=== PATIENT | female | born 2000 | race Caucasian/White ===

== ENCOUNTER 2020-01-12 07:07 | Outpatient (NON) | payer OTHER, SELFPAY ==
[2020-01-13 22:24] LABS: SARS-CoV-2 RNA PCR Negative
== END 2020-01-12 07:08 ==
PROVIDERS: PCP Family Medicine; Visit Provider Nurse Practitioner Family
DX: R68.89 Other general symptoms and signs (principal); Z20.828 Contact with and (suspected) exposure to other viral communicable diseases
CPT/HCPCS: 87635; C9803; U0003

== ENCOUNTER 2021-09-28 11:24 | Outpatient (CLI) | payer OTHER, SELFPAY ==
--- NOTE | ~2021-09-28 | XR_ITS ---
EXAMINATION: XR chest 2V 09/28/2021 12:17 INDICATION: Cough. PROCEDURE: 2 view chest COMPARISON: No prior studies for comparison. FINDINGS: The lungs are clear. The cardiomediastinal silhouette is within normal limits. There are no pleural effusions. There is no pneumothorax suspected. The lungs are mildly hyperinflated, which can be associated with reactive airway disease. IMPRESSION: 1: NO ACUTE CARDIOPULMONARY DISEASE. Reviewed, dictated and finalized at location A.
== END 2021-09-28 11:25 ==
PROVIDERS: PCP Family Medicine; Visit Provider Family Medicine
DX: R05.9 Cough, unspecified (principal)
CPT/HCPCS: 71046

== ENCOUNTER 2021-10-30 13:16 | Outpatient (CLI) | payer OTHER, SELFPAY ==
--- NOTE | 2021-11-02 13:24 | WPDPFTINT ---
PFT Procedure Performed PFT Procedure Performed Spirometry with Pre/Post Bronchodilator Plethysmography (Lung Vol) Diffusing Cap (DLCO) Flow Vol Loop PFT Interpretation Lung volumes were measured with the body plethysmography method. Lung volumes are unremarkable. Spirometry showed normal expiratory flow rates and a normal FEV1 to FVC ratio of 96%. Following administration of a bronchodilator there was no significant change in the expiratory flow rates. Lung diffusion capacity is within the normal range. The flow volume loop is unremarkable. Impression: Spirometry, lung volumes, and lung diffusion capacity all within normal range.
== END 2021-10-30 13:17 | disposition home or self-care (01) ==
PROVIDERS: PCP Family Medicine; Visit Provider Family Medicine
DX: R05.9 Cough, unspecified (principal)
CPT/HCPCS: 94060; 94726; 94729

== ENCOUNTER 2022-09-06 08:10 | Outpatient (CLI) | payer OTHER, SELFPAY ==
--- NOTE | ~2022-09-06 | US_ITS ---
EXAMINATION: US thyroid DATE: 09/06/2022 08:45 INDICATION: Nontoxic single thyroid nodule. TECHNIQUE: Multiple ultrasound images of the thyroid were obtained. COMPARISON: None. FINDINGS: The right thyroid lobe measures 3.7 x 1.5 x 2.3 cm. The left thyroid lobe measures 3.1 x 1.5 x 1.3 c m. In the right thyroid lobe, there is a 1.7 cm solid, isoechoic, wider than tall nodule with ill-de fined margin without echogenic foci (TI-RADS TR3). IMPRESSION: 1. Right thyroid nodule. Thyroid ultrasound is recommended in one year. Reviewed, dictated and finalized at location A.
== END 2022-09-06 08:11 | disposition home or self-care (01) ==
PROVIDERS: PCP Family Medicine; Visit Provider Physician Assistant
DX: E04.1 Nontoxic single thyroid nodule (principal)
CPT/HCPCS: 76536

== ENCOUNTER 2022-09-27 04:31 | Emergency (ER) | payer OTHER, SELFPAY ==
[2022-09-27 04:36] VITALS: BP 116/82; PULSE 94; RESP 15; O2SAT 100
[2022-09-27] MEDS: LACTATED RINGERS 1,000 ML 999 ML IV CONT (05:16)
[2022-09-27] MEDS: ONDANSETRON INJ 4 MG/2 ML VIAL IV PUSH (05:17)
[2022-09-27 05:25] LABS: Basophils Percent Auto 0.5 % (0.2-1.2); Eosinophils Percent Auto 0.5 % (0-4.4); Hematocrit 40.3 % (37.0-47.0); Hemoglobin 14.2 g/dL (12.0-15.0); Immature Granulocyte Absolute 0.04 K/mm3 (0.00-0.031); Immature Granulocyte Percent A 0.5 % (0-0.5); Lymphocytes Absolute Auto 2.26 K/mm3 (0.9-3.2); Lymphocytes Percent Auto 29.9 % (18.3-44.2); Mean Corpuscular HGB Conc 35.2 g/dl (32-36); Mean Corpuscular Hemoglobin 30.7 pg (26-34); Mean Platelet Volume 10.5 fl (7.4-10.4); Monocytes Absolute Auto 0.3 K/mm3 (0.1-0.6); Monocytes Percent Auto 3.7 % (2.6-8.5); Neutrophils Absolute Auto 4.9 K/mm3 (1.3-6.7); Neutrophils Percent Auto 64.9 % (45.5-73.1); Platelet Count Result 218 k/mm3 (150-375); Red Blood Count 4.63 M/mm3 (4.2-5.4); White Blood Count 7.6 K/mm3 (4.5-10.0)
[2022-09-27 05:34] LABS: Alanine Aminotransferase 41 U/L (6-35); Alkaline Phosphatase 54 U/L (38-126); Anion Gap 13 mmol/L (8-16); Aspartate Amino Transferase 69 U/L (14-36); Bilirubin,Total 0.3 mg/dL (0.2-1.3); Blood Urea Nitrogen 10 mg/dL (7-17); Calcium 9.6 mg/dL (8.4-10.2); Carbon Dioxide 23 mmol/L (22-30); Chloride 101 mmol/L (98-107); Estimated CRCL calculation 110 ml/min; Estimated Glomerular Filt Rate > 60; Glucose 100 mg/dL (65-110); Lipase 101 U/L (23-300); Potassium 3.6 mmol/L (3.4-5.0); Sodium 137 mmol/L (137-145)
--- NOTE | 2022-09-27 05:47 | ED.NAVMDI ---
HPI - Nausea/Vomiting/Diarrhea General Chief complaint: Nausea/Vomiting/Diarrhea Stated complaint: nausea/vomiting Time Seen by Provider: 09/27/22 05:09 Source: patient and RN notes reviewed Mode of arrival: ambulatory Limitations: no limitations History of Present Illness HPI Narrative: This is 21 year old female who presents for evaluation of diarrhea and vomiting. She states approximately 4 hours ago she developed multiple episode of diarrhea and then she develop vomiting. She reports quivering sensation in her upper abdomen. She states she went to restaurant last night to eat but she is the only that is sick. She denies fever. she reports throat discomfort from her vomiting. Related Data Home Medications Medication Instructions Recorded Confirmed spironolactone 50 mg tablet 50 mg PO BID 04/13/19 08/13/22 Allergies Allergy/AdvReac Type Severity Reaction Status Date / Time fluconazole Allergy Other Verified 09/27/22 04:40 Review of Systems Constitutional: Constitutional: Denies weakness Cardiovascular: Cardiovascular: Denies syncope, Denies rapid heart rate, Denies irregular heart rhythm, Denies leg edema and Denies dyspnea Respiratory: Respiratory: Denies chest congestion, Denies hemoptysis, Denies excessive phlegm production and Denies dyspnea Gastrointestinal: Gastrointestinal: Reports abdominal pain, Denies hematochezia, Reports diarrhea, Reports nausea and Reports vomiting Genitourinary: Genitourinary: Denies hematuria and Denies dysuria Musculoskeletal: Musculoskeletal: Denies joint swelling, Denies loss of height and Denies muscle weakness Neurologic: Denies syncope, Denies focal weakness and Denies weakness PMFSH Past Medical History Medical History (Updated 09/28/22 @ 00:05 by Claudia Simeon) Patient denies medical problems Surgical History Surgical History (Updated 09/27/22 @ 05:48 by Lorraine Gutierres MD) No pertinent past surgical history Family History Family History Father Hypertension Family history of elevated blood lipids Family history of diabetes mellitus in first degree relative Family history of coronary artery disease Social History Social History Social History: Single Smoking status: Never smoker Second hand tobacco smoke exposure: No Alcohol intake: never Substance use: never Substance use type: does not use Living arrangements: alone Occupation/Education: student Additional occupation/education comments: 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 Gender identity (if verbalized by the patient): Female Exam Const: General: no acute distress and alert Nutritional Appearance: well nourished Orientation/consciousness: patient oriented x3 HENMT: Head: normal to inspection Ears: external ears normal Mouth: Yes lip normal and Yes moist mucous membranes Teeth and gingiva: dentition normal Throat: uvula midline Other: mild irritation at uvula from vomiting Eyes: Pupils: Equal, round and reactive pupils present EOM: EOMs intact bilaterally Neck: Neck: normal visual inspection Chest: Chest palpation & inspection: normal inspection of the chest Resp: Effort & Inspection: normal respiratory effort Auscultation: clear to auscultation bilaterally Cardio: Rate: regular rate Rhythm: regular rhythm Heart sounds: no murmurs GI: GI Palp: Yes Soft to palpation, Yes Tenderness to palpation present (GI) (epigastric), No Guarding due to palpation present (GI) and No Rigid due to palpation Auscultation: normal bowel sounds Skin: General skin exam: normal color Rashes: no rashes Wounds: no wounds Neuro: General: patient oriented x3, moves all extremities and CN's II-XI intact bilaterally Extrem: General: normal to inspection Psych: Mental Status: mental status grossly normal Affect: normal affect Attitude: cooperative Course Reevaluation(s)
[2022-09-27 05:53] LABS: Appearance Urine Cloudy (Clear); Bacteria Urine 1+ /hpf; Bilirubin Urine Negative (Negative); Blood Urine Negative (Negative); Color Urine Dark Yellow (Yellow); Glucose Urine UA Negative (Negative); Ketones Urine Trace mg/dL (Negative); Leukocyte Esterase Ur Negative LEU/UL (Negative); Nitrate Urine Negative (Negative); Non Pathogenic Casts 0-2; Protein Urine Trace mg/dL (Negative); RBC Urine 0-2 /hpf (0-2); Specific Grav Ur 1.024 (1.001-1.035); Squamous Epithelial Cell Urine Moderate /hpf (Few); WBC Urine 0-5 /hpf
[2022-09-27 05:56] LABS: Add Urine Microscopic? YES
[2022-09-27 06:57] VITALS: TEMP 36.7
[2022-09-27 07:05] VITALS: BP 118/66; PULSE 84; RESP 15; O2SAT 100
[2022-09-27 07:05] LABS: Hepatitis B Surface Antigen Negative (Negative)
[2022-09-27 07:12] LABS: HAV RESULT Negative (Negative); Hepatitis B Core IgM Result Negative (Negative)
[2022-09-27 07:23] LABS: Hepatitis C Virus Antibody Negative (Negative)
== END 2022-09-27 07:06 | disposition home or self-care (01) ==
PROVIDERS: Emergency Provider General Practice; PCP Family Medicine
DX: K52.9 Noninfective gastroenteritis and colitis, unspecified (principal)
CPT/HCPCS: 36415; 80053; 80074; 81001; 81025; 83690; 85025; 96361; 96374; 99284; J2405; J7120

== ENCOUNTER 2023-06-08 16:01 | Outpatient (CLI) | payer OTHER, SELFPAY ==
--- NOTE | ~2023-06-08 | XR_ITS ---
EXAMINATION: XR chest 2V 06/08/2023 16:16 INDICATION: Shortness of breath PROCEDURE: 2 view chest COMPARISON: No prior studies for comparison. FINDINGS: The lungs are clear. Mild hyperinflation. The cardiomediastinal silhouette is within normal limits. There are no pleural effusions. There is no pneumothorax suspected. IMPRESSION: 1: NO ACUTE CARDIOPULMONARY DISEASE. Reviewed, dictated and finalized at location B.
== END 2023-06-08 16:02 | disposition home or self-care (01) ==
LOC: ANHIMG 16:02
PROVIDERS: PCP Family Medicine; Visit Provider Physician Assistant
DX: R06.02 Shortness of breath (principal)
CPT/HCPCS: 71046

== ENCOUNTER 2023-07-28 14:50 | Outpatient (CLI) | payer OTHER, SELFPAY ==
[2023-07-28 16:08] LABS: Strep Group A RT-PCR NOT DETECTED (Negative)
[2023-07-28 16:16] LABS: Influenza A QL RT-PCR Negative (Negative); Influenza B QL RT-PCR Negative (Negative); SARS-CoV-2 RNA PCR Negative (Negative)
== END 2023-07-28 14:51 | disposition home or self-care (01) ==
LOC: ANHLAB 14:52
PROVIDERS: PCP Family Medicine; Visit Provider Family Medicine
DX: J02.9 Acute pharyngitis, unspecified (principal); R50.9 Fever, unspecified
CPT/HCPCS: 87636; 87651

== ENCOUNTER 2023-09-12 15:10 | Outpatient (CLI) | payer OTHER, SELFPAY ==
[2023-09-12 15:59] LABS: SARS-CoV-2 RNA PCR Negative (Negative)
== END 2023-09-12 15:11 | disposition home or self-care (01) ==
LOC: ANHLAB 15:11
PROVIDERS: PCP Family Medicine; Visit Provider Physician Assistant Medical
DX: R51.9 Headache, unspecified (principal); R53.83 Other fatigue; Z20.822 Contact with and (suspected) exposure to COVID-19
CPT/HCPCS: 87635

== ENCOUNTER 2023-10-10 14:10 | Outpatient (CLI) | payer OTHER, SELFPAY ==
[2023-10-10 15:00] LABS: SARS-CoV-2 RNA PCR Positive (Negative)
== END 2023-10-10 14:11 | disposition home or self-care (01) ==
LOC: ANHLAB 14:12
PROVIDERS: PCP Family Medicine; Visit Provider Physician Assistant Medical
DX: U07.1 COVID-19 (principal)
CPT/HCPCS: 87635

== ENCOUNTER 2024-01-06 15:19 | Emergency (ER) | payer OTHER, SELFPAY ==
--- NOTE | ~2024-01-06 | CT_ITS ---
EXAMINATION: CT brain wo con DATE: 01/06/2024 17:13 INDICATION: Headache and vomiting. TECHNIQUE: Computed tomography (CT) of the head was performed without intravenous contrast. The mA wa s adjusted according to patient size. Iterative reconstruction technique was employed. The dose-lengt h product was 605.33 mGy-cm. COMPARISON: None FINDINGS: There is no intracranial hemorrhage, acute infarction, or abnormal intracranial mass lesion . The ventricles are normal in size. There is mild mucosal thickening in left maxillary sinus. The or bits are normal. The mastoid air cells are normal. IMPRESSION: 1. Normal brain. Reviewed, dictated and finalized at location A. HARDENER IMPRESSION: 1. Normal brain.
[2024-01-06 15:29] VITALS: BP 121/84; PULSE 101; RESP 16; TEMP 36.7; O2SAT 100
--- NOTE | 2024-01-06 15:57 | ED_ITS ---
HPI - Headache General Chief Complaint: Headache <UBALDO Rojas Last Filed: 01/06/24 15:58> Stated Complaint: vomiting <UBALDO Rojas Last Filed: 01/06/24 15:58> Time Seen by Provider: 01/06/24 15:57 <UBALDO Rojas Last Filed: 01/06/24 15:58> Focused HPI: This is a 23 year old female that presents to the ER for a headache. Ongoing since she woke up this morning. Associated with nausea and vomiting. Took a long nap without relief. Denies fever, abdominal, dysuria or hematuria. GENERAL: Well-appearing, well-nourished, and in no acute distress. HEAD: Normocephalic, atraumatic. CHEST: Clear to auscultation. ?No respiratory distress. HEART: Regular rate and rhythm.? NEURO: ?Alert and oriented x3. Patient screened in triage and initial orders placed.? ?Additional care and disposition to be based upon?diagnostic testing and treatment. <UBALDO Rojas Last Filed: 01/06/24 15:58> Focused HPI: This is a 23 year old female that presents to the ER for a headache. Ongoing since she woke up this morning. Associated with nausea and vomiting. Took a long nap without relief. Denies fever, abdominal, dysuria or hematuria. GENERAL: Well-appearing, well-nourished, and in no acute distress. HEAD: Normocephalic, atraumatic. CHEST: Clear to auscultation. ?No respiratory distress. HEART: Regular rate and rhythm.? NEURO: ?Alert and oriented x3. Patient screened in triage and initial orders placed.? ?Additional care and disposition to be based upon?diagnostic testing and treatment. <UBALDO Miranda Last Filed: 01/06/24 20:26> Source: patient <UBALDO Miranda Last Filed: 01/06/24 20:26> Mode of arrival: ambulatory <UBALDO Miranda Last Filed: 01/06/24 20:26> Limitations: no limitations <UBALDO Miranda Last Filed: 01/06/24 20:26> History of Present Illness HPI Narrative: Agree with above HPI. Attempted taking ibuprofen but does not think she kept this down. Hx of occasional headaches and 1 previous migraine. Reports photophobia/phonophobia. <Alexia Hartley PA-C - Last Filed: 01/06/24 20:26> Related Data Home Medications: Home Medications Medication Instructions Recorded Confirmed spironolactone 50 mg tablet 50 mg PO BID 04/13/19 11/15/23 <Keiry Ornelas PA-C - Last Filed: 01/06/24 15:58> Allergies/Adverse Reactions: Allergies Allergy/AdvReac Type Severity Reaction Status Date / Time fluconazole Allergy Other Verified 11/15/23 09:09 <Keiry Ornelas PA-C - Last Filed: 01/06/24 15:58> Review of Systems Review of Systems: All systems reviewed & are unremarkable except as noted in HPI. <Alexia Hartley PA-C - Last Filed: 01/06/24 20:26> All systems reviewed & are unremarkable except as noted in HPI and below <Alexia Hartley PA-C - Last Filed: 01/06/24 20:26> PMFSH Past Medical History Medical History: Medical History Patient denies medical problems Positive antinuclear antibody <Keiry Ornelas PA-C - Last Filed: 01/06/24 15:58> Surgical History Surgical History: Surgical History No pertinent past surgical history <Keiry Ornelas PA-C - Last Filed: 01/06/24 15:58> Family History Family History: Family History Father Hypertension Family history of elevated blood lipids Family history of diabetes mellitus in first degree relative Family history of coronary artery disease <Keiry Ornelas PA-C - Last Filed: 01/06/24 15:58> Social History Social History: Social History Social History: Single Smoking status: Never smoker Second hand tobacco smoke exposure: No Alcohol intake: never Substance use: never Substance use type: does not use Living arrangements: alone Occupation/Education: student Additional occupation/education comments: 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 Gender identity (if verbalized by the patient): Female <Keiry Ornelas PA-C - Last Filed: 01/06/24 15:58> Exam Narrative: GENERAL: Well appearing, thin, non-toxic, in no acute distress. HEAD: Normocephalic, atraumatic. EYES: PERRL/EOMI, conjunctiva clear. No nystagmus NECK: No meningeal signs. RESPIRATORY: Airway patent, respirations nonlabored. Clear to auscultation bilaterally, no rales, rhonchi, wheezing. CARDIOVASCULAR: Regular rate and rhythm MUSCULOSKELETAL: Moves all extremities. No gross deformities. SKIN: Warm, dry, normal color. NEURO: A&O X3. Speech clear. Cranial nerves II-XII grossly intact. Steady gait. No ataxic movements. No focal deficits. PSYCHIATRIC: Appropriate mood and affect. Normal interaction. <Alexia Hartley PA-C - Last Filed: 01/06/24 20:26> Course Vital Signs Vital signs: Vital Signs Temperature 98.0 F 01/06/24 15:29 Pulse Rate 101 H 01/06/24 15:29 Respiratory Rate 16 01/06/24 15:29 Blood Pressure 121/84 01/06/24 15:29 Pulse Oximetry 100 01/06/24 15:29 Oxygen Delivery Room Air 01/06/24 15:29 Temperature 98.0 F 01/06/24 19:04 Pulse Rate 73 01/06/24 19:04 Respiratory Rate 16 01/06/24 19:04 Blood Pressure 107/69 01/06/24 19:04 Pulse Oximetry 100 01/06/24 19:04 Oxygen Delivery Room Air 01/06/24 15:29 <Keiry Ornelas PA-C - Last Filed: 01/06/24 15:58> Vital Signs Temperature 98.0 F 01/06/24 15:29 Pulse Rate 101 H 01/06/24 15:29 Respiratory Rate 16 01/06/24 15:29 Blood Pressure 121/84 01/06/24 15:29 Pulse Oximetry 100 01/06/24 15:29 Oxygen Delivery Room Air 01/06/24 15:29 Temperature 98.0 F 01/06/24 19:04 Pulse Rate 73 01/06/24 19:04 Respiratory Rate 16 01/06/24 19:04 Blood Pressure 107/69 01/06/24 19:04 Pulse Oximetry 100 01/06/24 19:04 Oxygen Delivery Room Air 01/06/24 15:29 <UBALDO Miranda Last Filed: 01/06/24 20:26> MDM - Headache MDM Narrative Medical decision making narrative: Vital signs are stable upon arrival. Neurovascularly intact. CT brain negative. Laboratory studies fairly unremarkable. Does show leukocytosis to 16.8. Patient denies any recent infectious symptoms. She did report vomiting today. Likely hemoconcentrated. Fluids given. Normal TSH. Urine without signs of infection. Patient given migraine cocktail. She is feeling much better on re-evaluation. Feels comfortable with discharge home at this time. Discussed further management of headaches, will prescribe Zofran. Given return precautions. Discharged in stable condition. <UBALDO Miranda Last Filed: 01/06/24 20:26> Medical Records Attestation: I reviewed the patient's medical records. <UBALDO Miranda Last Filed: 01/06/24 20:26> Lab Data Attestation: I reviewed the patient's lab results. <UBALDO Miranda Last Filed: 01/06/24 20:26> Result diagrams: 01/06/24 18:09 01/06/24 18:09 <UBALDO Rojas Last Filed: 01/06/24 15:58> Labs: Lab Results 01/06/24 01/06/24 Range/Units 18:09 19:08 WBC 16.8 H (4.5-10.0) K/mm3 RBC 5.04 (4.2-5.4) M/mm3 Hgb 15.4 H (12.0-15.0) g/dL Hct 43.8 (37.0-47.0) % MCV 86.9 (80-100) fl MCH 30.6 (26-34) pg MCHC 35.2 (32-36) g/dl RDW 12.7 (11.5-14.5) % Plt Count 285 (150-375) k/mm3 MPV 11.1 H (7.4-10.4) fl Immature Gran % (Auto) 0.5 (0-0.5) % Neut % (Auto) 89.9 H (45.5-73.1) % Lymph % (Auto) 7.7 L (18.3-44.2) % Mcdonald % (Auto) 1.7 L (2.6-8.5) % Eos % (Auto) 0.0 (0-4.4) % Baso % (Auto) 0.2 (0.2-1.2) % Lymph # (Auto) 1.29 (0.9-3.2) K/mm3 Mcdonald # (Auto) 0.3 (0.1-0.6) K/mm3 Eos # (Auto) 0.0 (0-0.3) K/mm3 Baso # (Auto) 0.0 (0.0-0.1) K/mm3 Abs Immat Gran (auto) 0.08 H (0.00-0.031) K/mm3 Absolute Neuts (auto) 15.1 H (1.3-6.7) K/mm3 Absolute Nucleated RBC 0.000 (0.0-0.012) K/mm3 Nucleated RBC % 0.0 (0.0-0.2) % Sodium 139 (137-145) mmol/L Potassium 4.2 (3.4-5.0) mmol/L Chloride 100 (98-107) mmol/L Carbon Dioxide 26 (22-30) mmol/L Anion Gap 13 H (4-12) mmol/L BUN 12 (7-17) mg/dL Creatinine 0.70 (0.7-1.0) mg/dL Estim Creat Clear Calc 100 ml/min Estimated GFR > 60 (59 - ) Glucose 105 (65-110) mg/dL Calcium 10.2 (8.4-10.2) mg/dL Magnesium 2.1 (1.6-2.3) mg/dL Total Bilirubin 0.7 (0.2-1.3) mg/dL AST 31 (14-36) U/L ALT 22 (6-35) U/L Alkaline Phosphatase 64 (38-126) U/L Total Protein 9.0 H (6.3-8.2) g/dL Albumin 5.5 H (3.5-5.1) g/dL TSH (Reflex) 3.070 (0.465-4.68) uIU/mL Urine Color Dark yellow (Yellow) Urine Appearance Cloudy H (Clear) Urine pH 6.5 (5.0-9.0) Ur Specific [place] 1.027 (1.001-1.035) Urine Protein 1+ H (Negative) mg/dL Urine Glucose (UA) Negative (Negative) mg/dL Urine Ketones 1+ H (Negative) mg/dL Ur Blood (Man) Negative (Negative) Urine Nitrate Negative (Negative) Urine Bilirubin Negative (Negative) Urine Urobilinogen 0.2 (<2.0) mg/dL Add Ur Microanalysis Reviewed Leukocyte Esterase Rfl Negative (Negative) JOSE R/UL Urine RBC 0-2 (0-2) /hpf Urine WBC 0-5 (0-3) /hpf Ur Squamous Epith Cells None seen (Few) /hpf Urine Bacteria Rare /hpf Urine Casts 3-5 Urine Mucus Present /lpf <Keiry Ornelas PA-C - Last Filed: 01/06/24 15:58> Lab Results 01/06/24 01/06/24 Range/Units 18:09 19:08 WBC 16.8 H (4.5-10.0) K/mm3 RBC 5.04 (4.2-5.4) M/mm3 Hgb 15.4 H (12.0-15.0) g/dL Hct 43.8 (37.0-47.0) % MCV 86.9 (80-100) fl MCH 30.6 (26-34) pg MCHC 35.2 (32-36) g/dl RDW 12.7 (11.5-14.5) % Plt Count 285 (150-375) k/mm3 MPV 11.1 H (7.4-10.4) fl Immature Gran % (Auto) 0.5 (0-0.5) % Neut % (Auto) 89.9 H (45.5-73.1) % Lymph % (Auto) 7.7 L (18.3-44.2) % Mcdonald % (Auto) 1.7 L (2.6-8.5) % Eos % (Auto) 0.0 (0-4.4) % Baso % (Auto) 0.2 (0.2-1.2) % Lymph # (Auto) 1.29 (0.9-3.2) K/mm3 Mcdonald # (Auto) 0.3 (0.1-0.6) K/mm3 Eos # (Auto) 0.0 (0-0.3) K/mm3 Baso # (Auto) 0.0 (0.0-0.1) K/mm3 Abs Immat Gran (auto) 0.08 H (0.00-0.031) K/mm3 Absolute Neuts (auto) 15.1 H (1.3-6.7) K/mm3 Absolute Nucleated RBC 0.000 (0.0-0.012) K/mm3 Nucleated RBC % 0.0 (0.0-0.2) % Sodium 139 (137-145) mmol/L Potassium 4.2 (3.4-5.0) mmol/L Chloride 100 (98-107) mmol/L Carbon Dioxide 26 (22-30) mmol/L Anion Gap 13 H (4-12) mmol/L BUN 12 (7-17) mg/dL Creatinine 0.70 (0.7-1.0) mg/dL Estim Creat Clear Calc 100 ml/min Estimated GFR > 60 (59 - ) Glucose 105 (65-110) mg/dL Calcium 10.2 (8.4-10.2) mg/dL Magnesium 2.1 (1.6-2.3) mg/dL Total Bilirubin 0.7 (0.2-1.3) mg/dL AST 31 (14-36) U/L ALT 22 (6-35) U/L Alkaline Phosphatase 64 (38-126) U/L Total Protein 9.0 H (6.3-8.2) g/dL Albumin 5.5 H (3.5-5.1) g/dL TSH (Reflex) 3.070 (0.465-4.68) uIU/mL Urine Color Dark yellow (Yellow) Urine Appearance Cloudy H (Clear) Urine pH 6.5 (5.0-9.0) Ur Specific [place] 1.027 (1.001-1.035) Urine Protein 1+ H (Negative) mg/dL Urine Glucose (UA) Negative (Negative) mg/dL Urine Ketones 1+ H (Negative) mg/dL Ur Blood (Man) Negative (Negative) Urine Nitrate Negative (Negative) Urine Bilirubin Negative (Negative) Urine Urobilinogen 0.2 (<2.0) mg/dL Add Ur Microanalysis Reviewed Leukocyte Esterase Rfl Negative (Negative) JOSE R/UL Urine RBC 0-2 (0-2) /hpf Urine WBC 0-5 (0-3) /hpf Ur Squamous Epith Cells None seen (Few) /hpf Urine Bacteria Rare /hpf Urine Casts 3-5 Urine Mucus Present /lpf <Alexia Hartley PA-C - Last Filed: 01/06/24 20:26> Imaging Data Attestation: I personally reviewed and interpreted this imaging study as follows: <Alexia Hartley PA-C - Last Filed: 01/06/24 20:26> Radiologist's impression: ITS Impressions Head CT 01/06/24 17:14 IMPRESSION: 1. Normal brain. <UBALDO Miranda Last Filed: 01/06/24 20:26> Discharge Plan Discharge Clinical Impression: Migraine Qualifiers: Migraine type: unspecified Status migrainosus presence: without status migrainosus Intractability: not intractable Qualified Code(s): G43.909 - Migraine, unspecified, not intractable, without status migrainosus Nausea and vomiting Qualifiers: Vomiting type: unspecified Qualified Code(s): R11.2 - Nausea with vomiting, unspecified <UBALDO Rojas Last Filed: 01/06/24 15:58> Patient Disposition: Home, Self-Care <UBALDO Rojas Last Filed: 01/06/24 15:58> Condition: Stable <UBALDO Rojas Last Filed: 01/06/24 15:58> Instructions: Antibiotic Form, Migraine Headache (ED), Acute Nausea and Vomiting (ED) <UBALDO Rojas Last Filed: 01/06/24 15:58> Additional Instructions: Continue Tylenol and ibuprofen as needed for pain. Utilize Zofran as ne eded for further nausea. Get plenty of rest. Stay well hydrated. Recommend low light/ low stimulus environment, limiting screen time. Follow-up with your primary care doctor for further evaluation if needed. Return to the ED if you experience worsening or severe pain, severe dizziness, vision changes, unable to keep down food or drink, or any other symptoms of concern. <Keiry Ornelas PA-C - Last Filed: 01/06/24 15:58> Prescriptions: New ondansetron 4 mg tablet,disintegrating 4 mg PO Q8H PRN (Reason: nausea and vomiting) Qty: 15 0RF No Action spironolactone 50 mg tablet 50 mg PO BID <Keiry Ornelas PA-C - Last Filed: 01/06/24 15:58> Follow-up/Referrals: Donta Morocho MD [Primary Care Provider] - <Keiry Ornelas PA-C - Last Filed: 01/06/24 15:58> Time of Disposition: 20:19 <Keiry Ornelas PA-C - Last Filed: 01/06/24 15:58> 20:19 <Alexia Hartley PA-C - Last Filed: 01/06/24 20:26>
[2024-01-06 17:12] VITALS: BP 128/86; PULSE 80; RESP 16; TEMP 36.7; O2SAT 100
[2024-01-06] MEDS: ACETAMINOPHEN 500 MG TABLET 1000 MG PO (17:39)
[2024-01-06] MEDS: METOCLOPRAMIDE HCL INJ 10 MG/2 ML VIAL IV PUSH (17:58)
[2024-01-06] MEDS: diphenhydrAMINE HCl INJ 50 MG/ML VIAL 25 MG IV PUSH (17:58)
[2024-01-06] MEDS: SODIUM CHLORIDE 0.9% IV 1,000 ML 999 ML IV CONT (17:59)
[2024-01-06] MEDS: KETOROLAC 30 MG/ML VIAL (*BKC) IV PUSH (18:26)
[2024-01-06 18:32] LABS: Basophils Percent Auto 0.2 % (0.2-1.2); Hematocrit 43.8 % (37.0-47.0); Hemoglobin 15.4 g/dL (12.0-15.0); Immature Granulocyte Absolute 0.08 K/mm3 (0.00-0.031); Immature Granulocyte Percent A 0.5 % (0-0.5); Lymphocytes Absolute Auto 1.29 K/mm3 (0.9-3.2); Lymphocytes Percent Auto 7.7 % (18.3-44.2); Mean Corpuscular HGB Conc 35.2 g/dl (32-36); Mean Corpuscular Hemoglobin 30.6 pg (26-34); Mean Corpuscular Volume 86.9 fl (80-100); Mean Platelet Volume 11.1 fl (7.4-10.4); Monocytes Absolute Auto 0.3 K/mm3 (0.1-0.6); Monocytes Percent Auto 1.7 % (2.6-8.5); Neutrophils Absolute Auto 15.1 K/mm3 (1.3-6.7); Neutrophils Percent Auto 89.9 % (45.5-73.1); Platelet Count Result 285 k/mm3 (150-375); Red Blood Count 5.04 M/mm3 (4.2-5.4); Red Cell Distribution Width 12.7 % (11.5-14.5); White Blood Count 16.8 K/mm3 (4.5-10.0)
[2024-01-06 18:52] LABS: Alanine Aminotransferase 22 U/L (6-35); Albumin Level 5.5 g/dL (3.5-5.1); Alkaline Phosphatase 64 U/L (38-126); Anion Gap 13 mmol/L (4-12); Aspartate Amino Transferase 31 U/L (14-36); Bilirubin,Total 0.7 mg/dL (0.2-1.3); Blood Urea Nitrogen 12 mg/dL (7-17); Calcium 10.2 mg/dL (8.4-10.2); Carbon Dioxide 26 mmol/L (22-30); Chloride 100 mmol/L (98-107); Estimated CRCL calculation 100 ml/min; Estimated Glomerular Filt Rate > 60; Glucose 105 mg/dL (65-110); Magnesium 2.1 mg/dL (1.6-2.3); Potassium 4.2 mmol/L (3.4-5.0); Sodium 139 mmol/L (137-145)
[2024-01-06 19:04] VITALS: BP 107/69; PULSE 73; RESP 16; TEMP 36.7; O2SAT 100
[2024-01-06 19:35] LABS: Add Urine Microscopic? YES; Appearance Urine Cloudy (Clear); Bacteria Urine Rare /hpf; Bilirubin Urine Negative (Negative); Blood Urine Negative (Negative); Color Urine Dark Yellow (Yellow); Glucose Urine UA Negative (Negative); Ketones Urine 1+ mg/dL (Negative); Leukocyte Esterase Ur Negative LEU/UL (Negative); Mucus Urine Present /lpf; Need Manual Microscopic Reviewed; Nitrate Urine Negative (Negative); Protein Urine 1+ mg/dL (Negative); RBC Urine 0-2 /hpf (0-2); Specific Grav Ur 1.027 (1.001-1.035); Squamous Epithelial Cell Urine None Seen /hpf (Few); Urobilinogen Urine 0.2 mg/dL (<2.0); WBC Urine 0-5 /hpf (0-3); pH Urine 6.5 (5.0-9.0)
[2024-01-09 10:02] LABS: BEDSIDEPREGUCG Negative (Negative)
== END 2024-01-06 20:32 | disposition home or self-care (01) ==
PROVIDERS: Emergency Provider Physician Assistant; PCP Family Medicine
DX: G43.909 Migraine, unspecified, not intractable, without status migrainosus (principal); R11.2 Nausea with vomiting, unspecified
CPT/HCPCS: 36415; 70450; 80053; 81001; 81025; 83735; 84443; 85025; 96361; 96374; 96375; 99284; A9270; J1200; J1885; J2765; J7030

== ENCOUNTER 2024-08-01 10:32 | Outpatient (CLI) | payer OTHER, SELFPAY ==
--- NOTE | ~2024-08-01 | US_ITS ---
Limited Abdominal Sonogram: Real-time sonographic imaging of the right upper quadrant was performed. Clinical History: Abdominal pain Findings: The liver appears normal with no evidence of mass lesion or bile duct dilatation. Main por [place] vein demonstrates normal direction of flow. The gallbladder is well distended, and there is mild debris/sludge. The common bile duct measures 3 mm. The visualized pancreas, aorta, and IVC are unrem arkable. Impression: Mild gallbladder debris/sludge. Reviewed, dictated and finalized at location M. Impression: Mild gallbladder debris/sludge.
== END 2024-08-01 10:33 | disposition home or self-care (01) ==
LOC: MICIMG 10:33
PROVIDERS: PCP Family Medicine; Visit Provider Physician Assistant
DX: R10.11 Right upper quadrant pain (principal)
CPT/HCPCS: 76705

== ENCOUNTER 2024-08-07 15:03 | Outpatient (CLI) | payer OTHER, SELFPAY ==
--- OUTSIDE RECORDS SUMMARY | 2024-08-07 15:59 | XMS_ITS | Data Portability ---
Author Organization [facility] [place] Address [address] [place] [address] Care Team Providers Care Slicing Machine Operator Name Role Phone KAR CAMPBELL Primary Care Provider [phone] Assessment Encounter Date Assessment Date Assessment LastModified by Organization Details LastModified Time 07/28/2022 07/28/2022 Annual gynecological exam performed. Patient will come back in a year unless there are new symptoms. Not available 07/28/2022 12:49:54 10/20/2022 10/20/2022 NOrmal breast exam decrease caffeine discussed BSE, concering features, when to call. reassured, questions answered. preg test neg. [email or web address] Not available 10/20/2022 22:45:44 Plan of Treatment Reminders Order Date Submit Date Provider Last Modified By Organization Details Last Modified Time Details Appointments None recorded. Lab test, [facility] 2022 [email or web address] [place], [address], [place], [address], 10:27:19 urinalysis, dipstick [email or web address] [place], [place] [id number], [place], [address], 3 10:27:20 test, urine 2022 023 [facility] [place], [address], [place], [address], 3 15:00:26 Referral None recorded. Procedures None recorded. Surgeries None recorded. Imaging US, transvagina l 2023 024 [email or web address] [place], [address], [place], [address], 4 16:41:27 US, pelvis 2022 023 [email or web address] [place], [address], [place], [address], 3 15:25:53 US, transvagina l 2022 [email or web address], [address], [place], [address], 3 15:25:53 US, pelvis, complete 2022 023 [email or web address] 1 [place], [address], [place], [address], 4 17:09:37 Medication Orders None recorded. Patient TargetsNo targets recorded. Patient InstructionsNo instructions recorded. Reason for Referral None Reported. Results Created Date Observation Date Name Description Value Unit Range Abnormal Flag Note LastModifiedBy Organization Detail LastModifiedTime 07/29/19 23 07/28/2022 IMAGE GUIDE D PAP, REFLE X HPV IF ASCUS ONLY image guided Pap, reflex HPV ASCUS only SEE RESULT S BELOW CASE REPOR T: Cytol ogy Gynec ologi ansley Repor t Case: [id number] Autho roberta krishna Provi caroline: Mykel Loaiza Colle cted: 07/28 1459 PATIENT MANAGER Order ing Locat ion: [place] [facility] Recei horace: 07/29 1013 First Scree n: Frase r, Odalis , CT Speci men: Scree nick Pap - Image d, Cervi x STATE MENT OF ADEQU ACY: Satis facto ry for evalu ation Trans forma tion zone compo nent prese nt FINAL DIAGN OSIS: Negat dmitri for Intra epith elial Lesio n or Lobojeovanny mobley (NIL) . Elect can valle d by Odalis Fortune CT on 2022 at 8:36 AM ----- ----- ----- ----- ----- ----- ----- ----- ----- ----- ----- ----- ----- ----- ----- ----- ----- ---- COMME NT: This speci men was revie wed by a Cytot echno logis t and/o r Patho logis t (as indic ated in this repor t) after evalu ation using the Thinp rep Imagi ng Syste m. CLINI ANSLEY INFOR MATIO N: Menst rual Statu s: LMP (if appli cable ): Clini ansley Histo ry/Pr eviou s Pap: Type of Neopl monisha (if appli cable ): Signi fican t Clini ansley Findi ngs: Other Histo ry: Hormo shante (if appli cable ): PAP EDUCA BINTA L NOTE: The Pap Test is a scree nick test with an inher ent false negat dmitri rate. Liqui d-bas ed sampl ing may decre ase, but will not elimi jesus, false negat dmitri resul ts. A negat dmitri resul t does not precl ude the prese nce and/o r devel opmen t of disea se, since the prese nce of abnor mal cells in the sampl e depen ds on the locat ion of the lesio n and sampl ing techn ique. Monico nued regul ar scree nick is the best metho d of cance r preve ntion . If repor ryan cytol ogic findi ng do not corre late with physi ansley and/o r histo rical findi ngs, furth er inves tigat ion is recom jose d, as clini austin davila nted. Not Available [facility] (Lab) [address], [place], [address], 08/03/2022 09:41:04 07/29/19 23 07/28/2022 TRICH OMONA S VAGIN YUDI (RRNA ) trichomonas vaginalis ribosomal RNA (rrna) Negati ve negati ve Not Available [facility] (Lab) [address] [facility], [place], [address], 08/03/2022 09:41:05 07/29/19 23 07/28/2022 CT/GC (JOHN) , THINP REP VIAL chlamydia trachomatis, PCR Negati ve negati ve Not Available [facility] (Lab) [address] [facility], [place], [address], 08/03/2022 09:41:06 07/29/19 23 07/28/2022 CT/GC (JOHN) , THINP REP VIAL neisseria gonorrhoeae, PCR Negati ve negati ve Not Available [facility] (Lab) [address] [facility], [place], [address], 08/03/2022 09:41:06 10/21/19 23 10/20/2022 pregn sabrina test, urine HCG negati ve Not Available [place] [address], [place], [address], 10/20/2022 15:00:16 02/12/20 23 02/11/2023 CT/GC AND TRICH OMONA S VAGIN YUDI (RRNA ), SWAB chlamydia trachomatis, PCR Negati ve negati ve Not Available [facility] (Lab) [address] [facility], [place], [address], 02/12/2023 14:27:36 02/12/20 23 02/11/2023 CT/GC AND TRICH OMONA S VAGIN YUDI (RRNA ), SWAB neisseria gonorrhoeae, PCR Negati ve negati ve Not Available [facility] (Lab) [address] [facility], [place], [address], 02/12/2023 14:27:36 02/12/20 23 02/11/2023 CT/GC AND TRICH OMONA S VAGIN YUDI (RRNA ), SWAB trichomonas vaginalis ribosomal RNA (rrna) Negati ve negati ve Not Available [facility] (Lab) [address], [place], [address], 02/12/2023 14:27:36 02/12/20 23 02/11/2023 urina lysis , dipst ick Leukocytes neg Not Available [facility] tush[address], [place], [address], 02/11/2023 10:26:12 02/12/20 23 02/11/2023 urina lysis , dipst ick Nitrite neg Not Available [place] [address], [place], [address], 02/11/2023 10:26:12 02/12/20 23 02/11/2023 urina lysis , dipst ick Urobilinogen neg Not Available [facility] hugo [address], [place], [address], 02/11/2023 10:26:12 02/12/20 23 02/11/2023 urina lysis , dipst ick Protein trace Not Available [place] [address], [place], [address], 02/11/2023 10:26:12 02/12/20 23 02/11/2023 urina lysis , dipst ick pH 5 Not Available [place] [address], [place], [address], 02/11/2023 10:26:12 02/12/20 23 02/11/2023 urina lysis , dipst ick Specific [place] 1.005 Not Available [facility] [place] [address], [place], [address], 02/11/2023 10:26:12 02/12/20 23 02/11/2023 urina lysis , dipst ick Ketone neg Not Available [place] [address], [place], [address], 02/11/2023 10:26:12 02/12/20 23 02/11/2023 urina lysis , dipst ick Bilirubin neg Not Available [address], [place], [address], 02/11/2023 10:26:12 02/12/20 23 02/11/2023 urina lysis , dipst ick Glucose neg Not Available [place] [address], [place], [address], 02/11/2023 10:26:12 02/12/20 23 02/11/2023 urina lysis , dipst ick Appearance clear Not Available Law[facility] [address], [place], [address], 02/11/2023 10:26:12 02/12/20 23 02/11/2023 urina lysis , dipst ick Color yellow Not Available [place] [address], [place], [address], 02/11/2023 10:26:12 02/12/20 23 02/11/2023 pregn sabrina test, urine HCG negati ve Not Available [place] [address], [place], [address], 02/11/2023 10:26:09 02/18/20 23 02/17/2023 US, pelvi s No observ ation record ed. [facility] [address], [place], [address], 02/17/2023 18:26:36 02/18/20 23 02/17/2023 US, trans vagin al No observ ation record ed. [facility] [address], [place], [address], 02/17/2023 18:26:45 02/18/20 23 02/17/2023 US, pelvi s No observ ation record ed. [facility] [address], [place], [address], 02/22/2023 14:29:36 04/11/19 24 04/11/2023 US, trans vagin al No observ ation record ed. [email or web address] [place] [address], [place], [address], 04/11/2023 18:27:46 04/11/19 24 04/11/2023 US, trans vagin al No observ ation record ed. CHARMAINE [facility] [address], [place], [address], 05/28/2024 13:06:10 Result Notes None recorded. Problems Name Problem SNOMED Code Status Onset Date Resolution Date Notes Provider Name and Address Organization Details Recorded Time Acne 38307404 Completed 201809/12/2020 Acne, unspecifi ed;Practi ce ID: [id number] Shauna Rojo [facility] 15:14:12 Educatio n Completed 201509/12/2020 Encounter for family planning advice;Re corded Elsewhere : No Locati on: [facility] So urce: EHR Chron ic: N Practic e ID: 0001 Bill able Time: 04:15:00 PM Shauna Rojo [facility] 15:14:17 Removal of intraute rine device Completed 201809/12/2020 REMOVAL OF IUD;Recor ded Elsewhere : No Locati on: [facility] So urce: EHR Chron ic: N Practic e ID: 0001 Bill able Time: 08:45:00 AM Shauna Rojo [facility] 15:14:20 Pregnanc y test negative [id number] Completed 201509/12/2020 Encounter for test, result negative; Recorded Elsewhere : No Locati on: [facility] So urce: EHR Chron ic: N Practic e ID: 0001 Bill able Time: 04:15:[address] [facility] 15:14:19 Surveill ance of contrace ption Completed 201809/12/2020 Encounter for surveilla nce of contracep tives, unspecifi ed;Record ed Elsewhere : No Locati on: [facility] So urce: EHR Chron ic: N Practic e ID: 0001 Bill able Time: 08:30:[address] [facility] 15:14:22 Acute vaginiti s [id number] Completed 201809/12/2020 Vaginitis ;Recorded Elsewhere : No Locati on: [facility] So urce: EHR Chron ic: N Practic e ID: 0001 Bill able Time: 11:00:00 AM [facility] 15:14:15 Problem Notes None recorded. Procedures Surgical History Date Name Laterality Status Provider Name and Address Organization Details Recorded Time 11/05/19 21 Date of Last Pap Smear completed [facility] 02/24/2021 20:43:42 02/21/19 11 Tonsillectomy completed [facility] 09/12/2020 15:16:14 Imaging Results None recorded. Procedure Notes None recorded. Medical Equipment None Reported. Allergies Allergen ID Allergen Name Allergen Category Reaction Reaction Severity Criticality Documentation Date Start Date Code Code System Note Provider Name and Address Organization Details Recorded Time 53138 Diflucan medicatio n flushing mild Not available 02/25/20212020 3 RxNorm Abi jiménez, NP- [address], [place], [address], [facility] 13:33:44 Medications Name Sig Start Date Stop Date Status Note LastModified by Organization Details LastModified Time diltiazem and lidocaine 2, 3% ointment #929350 APPLY A SMALL AMOUNT PERIANAL AREA THREE TIMES A DAY DIRECTED FOR 8 WEEKS (JAR) active Not Available Not Available No t Available Mirena 21 mcg/24 hr (up to 8 years) 52 mg intrauter ine device 10/05 completed Prescrib ed Elsewher e: Yes Loca tion: [facility] odify By: [email or web address] Encount er DateTime : 10/06/19 08:45:00 AM Not Available Not Available Not Available nystatin 100,000 unit/mL oral suspensio n 02/11 completed Not Available Not Available Not Available Aviane 0.1 mg-20 mcg tablet take 1 tablet by oral route every day 02/25 completed Prescrib ed Elsewher e: No Locat ion: [facility] odify By: tammy ho DateTime : 01/02/20 01:16:21 PM Not Available Not Available Not Available doxycycli ne hyclate 100 mg capsule 02/11 completed Not Available Not Available Not Available ibuprofen 800 mg tablet 07/28 completed Not Available Not Available Not Available fluconazo le 150 mg tablet 02/11 completed Not Available Not Available Not Available hydrocodo ne 5 mg-acetam inophen 325 mg tablet TAKE 1 OR 2 TABLET BY MOUTH EVERY 6 HOURS NEEDED FOR PAIN 07/28 completed Not Available Not Available Not Available fluconazo le 200 mg tablet 02/11 completed Not Available Not Available Not Available metronida zole 0.75 % (37.5 mg/5 gram) vaginal gel Insert 1 applicat orful every day by vaginal route for 5 days. 02/11 completed Not Available Not Available Not Available spironola ctone 100 mg tablet 07/28 completed Not Available Not Available Not Available tretinoin 0.05 % topical cream 07/28 completed Not Available Not Available Not Available doxycycli ne monohydra te 100 mg tablet 02/11 completed Not Available Not Available Not Available terconazo le 80 mg vaginal supposito ry Insert 1 supposit ory every day by vaginal route at bedtime for 3 days. 07/28 completed Not Available Not Available Not Available amoxicill in 875 mg tablet TAKE 1 TABLET BY MOUTH TWICE DAILY 07/28 completed Not Available Not Available Not Available triamcino lone acetonide 0.1 % dental paste APPLY TO THE AFFECTED AREA THREE TIMES DAILY 02/25 completed Not Available Not Available Not Available Flagyl 500 mg tablet take 1 tablet by oral route every 12 hours x 7 days 11/29 completed Prescrib ed Elsewher e: No Locat ion: [facility] odify By: maureen banksuntjeff DateTime : 11/09/19 11:00:00 AM Not Available Not Available Not Available cephalexi n 500 mg capsule 02/11 completed Not Available Not Available Not Available mupirocin 2 % topical ointment 02/11 completed Not Available Not Available Not Available spironola ctone 50 mg tablet TAKE 1 TABLET BY MOUTH TWICE A DAY active Not Available Not Available No t Available tretinoin 02/25 completed Not Available Not Available Not Available Antacid 02/25 completed Not Available Not Available Not Available Lo Loestrin Fe 1 mg-10 mcg (24)/10 mcg (2) tablet 07/28 completed Not Available Not Available Not Available Kyleena 17.5 mcg/24 hr (up to 5 years) 19.5 mg intrauter ine device Take by intraute rine route. active Not Available Not Available No t Available Tri Femynor (28) 0.18 mg(7)/0.2 15 mg(7)/0.2 5 mg(7)-35 mcg tablet TAKE 1 TABLET BY MOUTH EVERY DAY 02/25 completed Not Available Not Available Not Available CaroSpir 25 mg/5 mL oral suspensio n take 7.5 millilit er by oral route every day 09/12 completed Prescrib ed Elsewher e: Yes Loca tion: [facility] odify By: maureen newby DateTime : 11/30/19 11:00:00 AM Not Available Not Available Not Available Vitals Date Recorded Body height Body mass index (BMI) Body weight Systolic blood pressure Diastolic blood pressure Provider Name and Address Organization Details Last Updated DateTime 07/28/2022 168.91 cm 21.6 kg/m2 66150.56 g 113 mm[Hg] 75 mm[Hg] Marysol Thaddeus [facility] 3 12:50:12 Date Recorded Body height Body mass index (BMI) Body weight Systolic blood pressure Diastolic blood pressure Provider Name and Address Organization Details Last Updated DateTime 10/20/2022 168.91 cm 21.6 kg/m2 00693.56 g 111 mm[Hg] 75 mm[Hg] Jyoti Domingueznas [facility] 3 14:25:18 Date Recorded Body height Body mass index (BMI) Body weight Systolic blood pressure Diastolic blood pressure Provider Name and Address Organization Details Last Updated DateTime 02/11/2023 168.91 cm 22.4 kg/m2 70771.52 g 121 mm[Hg] 76 mm[Hg] Shauna Breezy [facility] 3 10:09:18 Social History Question Answer Notes LastModified by Organizat ion Details LastModified Time Tobacco Smoking Status Never Smoker [facility] 09/12/2020 15:15:45 Are You Blind Or Do You Have Difficulty Seeing? No Information n ot available 09/12/2020 What Is Your Level Of Caffeine Consumption? Occasional Information not available 09/12/2020 In The 14 Days Before Symptom Onset, Have You Had Close Contact With A Laboratory-confirm ed COVID-19 While That Case Was Ill? No Information n ot available 07/28/2022 In The 14 Days Before Symptom Onset, Have You Had Close Contact With A Person Who Is Under Investigation For COVID-19 While That Person Was Ill? No Information not available 07/28/2022 Have You Been To An Area Known To Be High Risk For COVID-19? No Information not available 07/28/2022 Are You Deaf Or Do You Have Serious Difficulty Hearing? No Information not available 09/12/2020 What Type Of Diet Are You Following? REGULAR Information n ot available 09/12/2020 Do You Use Your Seat Belt Or Car Seat Routinely? Yes Information not available 09/12/2020 Do You Have Smoke And Carbon Monoxide Detectors In Your Home? Yes Information not available 09/12/2020 Do You Use Sunscreen Routinely? Yes Information not available 09/12/2020 Do You Have Difficulty Walking Or Climbing Stairs? No Information not available 02/11/2023 Sex: Unknown Functional Status Question Answer Note LastModified by Organizat ion Details LastModified Time Do you use any illicit or recreational drugs? No Information not available 09/12/2020 What is your level of alcohol consumption? Occasional Information not available 02/11/2023 Are you able to walk? YESWOREST Information not available 09/12/2020 Are you able to care for yourself? Yes Information n ot available 02/11/2023 Do you have difficulty dressing or bathing? No Information not available 02/11/2023 What is your exercise level? Moderate Information not available 09/12/2020 Mental Status Question Answer Note LastModified by Organization D etails LastModified Time Do you feel stressed (tense, restless, nervous, or anxious, or unable to sleep at night)? [id number] Information not available 09/12/2020 Family History Relationship Description Onset Age of this Age Resolved Age Notes LastModified by Organization Details LastModified Time Father Diabetes mellitus Not available 2020 15:15:08 Father Heart disease Not available 2020 15:15:19 Paternal Grandmother Hypertensive disorder Not available 2020 15:15:25 Mother Uterine leiomyoma Not available 2022 10:10:18 Medical History Condition Response Allergies (Food, seasonal, environmental ) N Other N Breast Cancer N Drug/Latex Allergies/Reactions N Blood Transfusion N Dermatologic Disorders N Lung Disease N Defects or Inherited Disease N Breast Problem N Gestational Diabetes N Hematologic disorders N Anesthesia Complications N History of STI N Deep Vein Thrombosis N Polycystic ovary syndrome N Anxiety Disorder N Autoimmune disease N Arthritis N Infertility N Polyps N Acid Reflux (GERD) N History of abnormal pap N Cancer N Stroke N Varicosities N Neurologic/Epilepsy N Endometriosis N High Cholesterol N Headaches N Fibromyalgia N Kidney Disease N Heart Problems N Kidney or Bladder Problems N Thyroid Problems Y GI Problems N Eating Disorder N Anemia N Art (IVF or FET) N Psychiatric Illness N Ovarian Cancer N Diabetes N Pulmonary (TB, Asthma) N Hepatitis/Liver Disease N No Past Medical History N Eczema N Urinary Tract Infection N Abuse/Domestic Violence N Asthma N Trauma/Violence N Depression/ depression N Heart Disease N Pre-Eclampsia N Hypertension N Osteoporosis N Thrombophilias N Gynecological History Statement/Question Response Abnormal Pap N Flow Light Date of LMP 02/08/2023 STIs/STDs N HPV Vaccine N Duration of Flow (days) 4 11 Current Control Method IUD Sexually Active? Y Menses Monthly N Date of Last Pap Smear 11/04/2020 Sexual Problems? N LMP Approximate Obstetrics History GPAL:G 0 P 0 0 0 0 Type Value Living 0 Total 0 Past Encounters Encounter ID Performer Location Encounter Start Date Encounter Closed Date Diagnosis/Indication Diagnosis SNOMED-CT Code Diagnosis ICD10 Code Diagnosis Note [id number] Abi Evans , [facility] [address] [address] 09/12/2020 15:01:44 09/12/2020 15:45:50 Mass of left breast 0444691404 9853996 N63.20 Today, we conducted CBE for concerns of a bump in left breast lower outer quadrant.H er breast exam was WNL equally today.We reviewed monthly SBE & breast anatomy with garrick varela.W e discussed performing SBE's AFTER a menses (has IUD so slightly unpredicta ble); and if feels unsure can contact us for breast check. We will update her CBE with her next WWE in a few weeks; will obtain primary pap/std screen at that time. If notes any prominent changes we can order breast US for reassuranc e but breast exam is WNL today. Hx Reviewed & updated today. Time spent in visit is a total of 32 mins with at least 50% of visit consisting of counseling and review of plan of care. Additional precaution luis measures were taken to minimize potential exposure to the Covid-19 virus during this patient s visit, including available hand plasterer helper upon arrive, temperatur e check and being asked a series of screening questions. All staff wore face coverings during this encounter, as well as provided additional cleaning and sanitizing of all surfaces, including countertop s, pens, chairs, door handles, light switches, etc, prior to and following the patient s visit. [id number] Abi Evans [facility] [address],[place] [address] 02/25/2021 11:24:52 02/25/2021 12:22:42 Vaginitis 05845578 N76.0 Treated for yeast today.Will monitor lymph nodes and if sx's return will contact office. Time spent in visit is a total of 15 mins with at least 50% of visit consisting of counseling and review of plan of care.Addit ional precaution luis measures were taken to minimize potential exposure to the Covid-19 virus during this patient s visit, including available hand plasterer helper upon arrive, temperatur e check and being asked a series of screening questions. All staff wore face coverings during this encounter, as well as provided additional cleaning and sanitizing of all surfaces, including countertop s, pens, chairs, door handles, light switches, etc, prior to and following the patient s visit. [id number] Abi Evans [facility] [address],[place] [address] 07/28/2022 12:42:51 07/28/2022 13:05:59 Gynecologic examination [id number] Z01.419 Take Calcium with Vitamin D 1200mg daily if not receiving in daily diet. It is strongly advised to have an annual flu shot and up can obtain at most pharmacies . If you have not had a TDap shot in the last 10 years you should obtain one as well. Discussed with patient & provided with informatio n regarding Gardisil vaccine to prevent the 4 strains for HPV that cause cervical cancer if under age 26. Encourage safe sexual practices, to use condoms and limit partners if not already in a monogamous relationsh ip. Do monthly self breast exams. Have mammogram yearly or every other year depending on family history. BRCA testing is now available for patients with strong genetic history of female cancer. If interested contact the office. Engage in daily exercise of low impact aerobic exercise 45-60 minutes 4-5 times weekly. Avoid tobacco and illicit drugs as well as using moderation with alcohol intake less than 1-2 8 oz beverages daily. This lifestyle behavior pattern will lead to less health conditions and longer life span. If BMI greater than 25 weight watchers or dietary consult advised. Patient received above instructio ns, and questions have been answered. If you have any questions please call or respond to this email. Patient was made aware of the patient portal and may obtain a paper copy of today's plan if desired. Pap sent STD Screen sent Genetic Screen discussed Colon Screen na Dexa Screen na Routine Labs PCP-being tested for hashimotos [id number] Gisel Simeon MD [place] [address],[place] [address] 10/20/2022 14:15:02 10/21/2022 11:35:00 Abnormal uterine bleeding [id number] 9100 N93.9 Tenderness of breast 552 53995 N64.4 Intrauteri ne contraceptive device in situ [id number] Z97.5 [id number] REGINE Toth [place] [address],[place] [address] 02/11/2023 09:55:18 02/11/2023 12:50:27 Pain in pelvis [id number] R10.2 normal appearing IUD strings noted on examUA normal, UPT (-)gc/ct/t rich testing sentpelvic u/s ordered, will update pt with results when available and discuss next stepspreca utions reviewed Time spent in visit is a total of 25 mins with at least 50% of visit consisting of counseling and review of plan of care. Dyspareunia [id number] N94 .10 Venereal d isease screening [id number] Z11.3 [id number] Dylan Wu MD [place] [address],[place] [address] 02/17/2023 11:50:59 02/17/2023 12:36:03 Pain in pelvis [id number] R10.2 [id number] Dylan Wu MD [place] [address],[place] [address] 04/11/2023 10:01:40 04/11/2023 10:36:59 Cyst of left ovary [id number] N83.292 Health Concerns Section Related Observation LastModified by Organization Detai ls LastModified Time None Recorded Concern Status LastModified by Organization Details LastModified Time None Recorded Advance Directives Directive None Recorded Payers Insurance Date Sequence Insurance Name Policy Number Policy [place] Covered Member ID [place] Member ID Guarantor Name 07/27/2022 1 [facility] [id number] Nica Red [id number] Kuldip Red 04/14/2023 1 [facility] [id number] Humphrey Camacho [id number] Kuldip Red Notes Date Note Type Note Provider Name and Address Organization Details Recorded Time 07/28/2022 text/html Annual GYNReport ed bypatient.History:no gynecologic complaints Menstrual cycle:Normal menses Urinary symptoms:No hematuria; No incontinence Vulva:No genital lesion Vagina:Normal vaginal discharge Breast:No breast pain; No breast lump; No nipple discharge Current Contraception:Satisfi ed with current contraception; Intrauterine device (iud) Sexual complaints:No sexual complaints; No pain during intercourse; Normal libido Menopausal Symptoms:No menopausal symptoms; Normal vaginal lubrication Psychological symptoms:No depression; No anxiety; No PMDD Preventive measures:Encourage self breast examination; Encourage regular exercise; Encourage no tobacco use; Encourage regular mammograms starting age 40; [facility] [address], [place], [address], [facility] 07/28/2022 13:02:24 10/20/2022 text/html Pt is a 22yo G0 here for a breast problem. She complains of bilateral breast tenderness, L>R for about 2-3 weeks. No masses or nipple discharge. no skin changes. Has kyleena for about 2 years, gets occasional spotting with that. drinks moderate amount of caffeine. Last mammogram:NA Last annual exam:07/2022 Gisel Simeon MD [address], [place], [address], [facility] 10/20/2022 22:45:58 02/11/2023 text/html 22yo [id number] for evaluation of pain with IChas happened twice over the last month, bilateral ache during IC that quickly resolvedSA with new partner recently, has had neg STI testing. Condom use sometimeskyleena IUD for BC, minimal periodsno vaginal d/c, odors, itching, irritationneg n/v/fneg urinary symptomsneg flank painsneg flu-like symptomsnormal bowel movementsno pain outside of IC [facility] [address], [place], [address], [place] [facility] 02/11/2023 12:37:34 OBGyn Episode No OBEpisode recorded.
--- OUTSIDE RECORDS SUMMARY | 2024-08-07 15:59 | XMS_ITS ---
Author Organization [facility] [employer] Address [address] [place] [address] Care Team Providers Care Chief Creative Officer Name Role Phone Donta Morocho MD Primary Care Provider Maycol Peguero Unavailable [phone] REASON FOR VISIT 2 MO Follow Up Medications Medication SIG (Take, Route, Frequency, Duration) Notes Start Date End Date Status Triamcinolone Acetonide 0.1 % APPLY TOPICALLY 2 TIMES A DAY NEEDED FOR RASH/ITCH ON BODY. DO NOT USE ON FACE, ARMPITS, OR GROIN External for 30 Days Not-Taking Adderall XR 10 MG 1 capsule in the morning Orally Once a day for 30 days 03/23/2024 Active busPIRone HCl 5 MG 1 tablet once a day for 14 days, 1 tablet 2 times a day for 76 days Orally see sign for 90 days 03/23/2024 06/21/2024 Active Escitalopram Oxalate 10 MG TAKE 1 TABLET BY MOUTH DAILY for 30 Active Social History Sex Assigned At : Social History Observation Description Sex Assigned At Female Encounters Encounter Location Date Provider Diagnosis [facility] [email or web address] [facility] [address] [place] [address] 05/18/2024 Maycol Moreno Plan Of Treatment No Information Progress Notes * Kuldip RED FDOB: 0 (23 yo F)Acc No.[id number]:05/18/2024 Patient: Kuldip CHRISTIE Provider: Per MORENO MD :2000 A ge:23 Y S ex:Female Date:05/18/2024 Address:[address] [place] [address] [place] [id number] Pcp:Donta Morocho MD Check In:04:01 PM [employer]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 2 MO Follow Up. 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 DO NOT USE ON FACE, ARMPITS, OR GROIN External Objective: * Vitals: Assessment: Plan: * Treatment: * Billing Information: * Visit Code: * Procedure Codes: * Electronic signature of Graeme Moreno MD on 08/07/2024 at 03:59 PM CDT Sign off status: Pending * Provider: Per MORENO MD Date: 0 05/18/2024 Generated for Stacia anderson/Rei/Bianka on: 0 08/07/2024 03:59 PM CDT
--- OUTSIDE RECORDS SUMMARY | 2024-08-07 15:59 | XMS_ITS | Data Portability ---
Author Organization [place] - [place] , DO NOT USE-[facility] Address [address] [facility] [facility] [place] [address] Assessment No assessment recorded. Plan of Treatment Reminders Order Date Submit Date Provider Last Modified By Organization Details Last Modified Time Details Appointments None recorded. Lab rapid strep group A, throat 2022 023 [email or web address] [facility], [address] [place], [address], 3 11:35:16 urinalysis, dipstick, auto 2022 023 [email or web address] [facility], [address] [place], [address], 3 11:29:11 test, urine 2022 023 [email or web address] [facility], [address], [address], 3 11:29:12 CT + NG + TV, DNA, urine/swab 2022 023 [email or web address] 2 [facility], [address], [place], [address], 4 07:50:43 hsv (1+2) igg, serum 2022 023 CHARMAINE [facility], [address], [place], [address], 3 21:16:19 hsv (1+2) igm Ab, serum 2022 023 [facility], [address], [place], [address], 3 21:16:18 RPR (rapid plasma reagin), serum 2022 023 2 [facility], [address] [facility] [address], [place], [address], 4 07:50:43 HIV 1+2 AB + HIV 1 p24 Ag, qualitative immunoassay , serum 2022 023 2 [facility], [address], [place], [address], 4 07:50:44 SARS CoV 2 (COVID-19) Ag, QL, IA, upper respiratory specimen 2022 023 [email or web address] [facility], [address] [facility], [place], [address], 3 11:35:22 Referral None recorded. Procedures None recorded. Surgeries None recorded. Imaging None recorded. Medication Orders fluticasone propionate 50 mcg/actuati on nasal spray,suspe nsion 2022 023 [id number], [address], [place], [id number], 3 15:48:16 Patient TargetsNo targets recorded. Patient Instructions Encounter Date Encounter Id Patient Instructions Last Modified By Organization Details Last Modified Time 01/21/2023 [id number] sore throat: car e instructions [email or web address] Not available 01/21/2023 11:29:08 - high risk sexu al history behavior - STI testing - pending, will call with results - exposure to covid with symptoms - covid test negative - sore throat x3 days - rapid strep negative - Symptoms appear to be a viral at this point. If symptoms continue for 7-10 days since onset then return to clinic. Drink plenty of fluids and get sleep. OTC medications as needed for symptom relief. Follow up with PCP as needed. Go to ER if you develop shortness of breath or worsening illness. - Sore throat care instructions - warm salt water gargles, chloraseptic, motrin or tylenol, if no better 48-72 hours return for a throat culture [email or web address] Not available 01/21/2023 11:38:10 01/22/2023 [id number] Acute Viral Sinusitis -The patient does NOT have any of the following signs/symptoms that make bacterial sinusitis likely: -Duration of symptoms greater than 10 days with NO clinical improvement: No -Onset of severe symptoms (fever greater than 102* and purulent nasal discharge or facial pain) lasting at least 3 days at onset of symptoms: No -Onset with worsening of symptoms following a viral URI that lasted at least 5-6 days and was initially improving: No -The likelihood of a viral illness was discussed with the patient. The lack of an indication for antibiotics was also discussed. -Symptomatic Therapy: -Due to severe inflammatory symptoms, a Medrol Dose pack was prescribed: No -OTC Decongestants -OTC Expectorant -Nasal Saline -Rest -Push Fluids -Call or return to clinic PRN if these symptoms worsen or fail to improve as anticipated. [email or web address] Not available 01/22/2023 16:02:01 Reason for Referral None Reported. Results Created Date Observation Date Name Description Value Unit Range Abnormal Flag Note LastModifiedBy Organization Detail LastModifiedTime 01/22/2001/21/2023 NEISS ERIA GONOR RHOEA E specimen type Urine Not Available [facility] (Lab) [address], [address], 01/25/2023 21:16:16 01/22/20 23 01/21/2023 NEISS ERIA GONOR RHOEA E neisseria gonorrhoeae Negati ve negati ve Not Available [facility] (Lab) [address], [address], 01/25/2023 21:16:16 01/22/20 23 01/21/2023 CHLAM YDIA TRACH OMATI S specimen type Urine Not Available [facility] (Lab) [address], [place], [address], 01/25/2023 21:16:17 01/22/20 23 01/21/2023 CHLAM YDIA TRACH OMATI S chlamydia trachomatis Negati ve negati ve Not Available [facility] (Lab) [address], [place], [address], 01/25/2023 21:16:17 01/22/20 23 01/21/2023 HSV 1 AND 2 IGM hsv 1 and 2 IgM Equivo ansley negati ve abnormal HSV 1 and 2 IgM testi ng by EIA is not recom jose d as a diffe renti al diagn ostic tool, but may offer infor matio n about a parti cular patie nt's antib ulisses respo nse. Prese nce of IgM may indic ate a prima ry infec tion, super -infe ction with the other serot ype, or react ivati on of a laten t HSV infec tion. In pregn ant women , this test shoul d not be used as the sole crite samy for the diagn osis of curre nt HSV infec tion. Heter otypi c IgM antib ulisses respo nses may cause false posit dmitri resul ts in patie nts with Rheum atoid Facto r or infec ryan with EBV or VZV. The prese nce of HSV shoul d be demon strat ed by cass huffman which detec t viral DNA by PCR. Not Available [facility] (Lab) [address], [place], [address], 01/25/2023 21:16:17 01/22/20 23 01/21/2023 HIV AG - AB COMBO HIV Ag - Ab combo Nonrea ctive nonrea ctive HIV-1 p24 Ag and HIV-1 /HIV- 2 Ab not detec ryan. Not Available [facility] (Lab) [address], [place], [address], 01/25/2023 21:16:18 01/22/20 23 01/21/2023 SYPHI LIS AB W/REF MIKE, SERUM syphilis Ab w/reflex, serum Nonrea ctive nonrea ctive Nonre activ e for trepo nemal antib odies , No serol ogic evide nce of syphi lis. Syphi lis Resul t Matri x ----- ----- ----- ----- ----- ----- ----- ----- ----- ----- ---- Pt Syph. Hist Syph. Ab Rflx RPR Rflx TP-PA ID ----- ----- ----- ----- ----- ----- ----- ----- ----- ----- ---- Unkno wn NR N/A N/A AA ----- ----- ----- ----- ----- ----- ----- ----- ----- ----- ---- Unkno wn RX RX N/A BB ----- ----- ----- ----- ----- ----- ----- ----- ----- ----- ---- Unkno wn RX NR NR CC ----- ----- ----- ----- ----- ----- ----- ----- ----- ----- ---- Unkno wn RX NR RX DD ----- ----- ----- ----- ----- ----- ----- ----- ----- ----- ---- Known RX NR RX or N/A EE ----- ----- ----- ----- ----- ----- ----- ----- ----- ----- ---- NR = Nonre activ e RX = React dmitri N/A = Not Avail able ----- ----- ----- ----- ----- ----- ----- ----- ----- ----- ---- Inter petat ion and Follo w Up ----- ----- ----- ----- ----- ----- ----- ----- ----- ----- ---- ID Inter preta tion Follo w Up ----- ----- ----- ----- ----- ----- ----- ----- ----- ----- ---- AA No serol ogjamal evide nce [facility] [place] [facility] syphi lis. indic ated. (e.g. , early syphi lis) ----- ----- ----- ----- ----- ----- ----- ----- ----- ----- ---- BB Confi rmed syphi lis. See [facility] treat ment Untre ated or recen tly guide lines . treat ed syphi lis ----- ----- ----- ----- ----- ----- ----- ----- ----- ----- ---- CC Proba ble false -posi tive No follo w-up testi ng scree nick test. unles s clini [place] indic ated. ----- ----- ----- ----- ----- ----- ----- ----- ----- ----- ---- DD Possi ble syphi lis Histo rical and (e.g. , early or laten t) clini ansley evalu ation or previ ously treat ed requi red. syphi lis. ----- ----- ----- ----- ----- ----- ----- ----- ----- ----- ---- EE Past, succe ssful ly None. treat ed syphi lis. ----- ----- ----- ----- ----- ----- ----- ----- ----- ----- ---- Not Available [facility] (Lab) [address], [address], 01/25/2023 21:16:18 01/22/20 23 01/21/2023 HSV 1 AND 2 IGG hsv-1 IgG Ab, result Negati ve negati ve Not Available [facility] (Lab) [address], [address], 01/25/2023 21:16:19 01/22/20 23 01/21/2023 HSV 1 AND 2 IGG hsv-1 IgG Ab, index value 0.30 index 0.00-0 .89 Not Available [facility] (Lab) [address], [address], 01/25/2023 21:16:19 01/22/20 23 01/21/2023 HSV 1 AND 2 IGG hsv-1 IgG Ab, interpretati on see below No detec table antib odies to HSV-1 were found . A negat dmitri resul t gener ally indic ates that the patie nt has not been infec ryan, but does not alway s rule out acute HSV infec tion. If clini ansley expos ure to HSV is suspe cted despi te a negat dmitri findi ng, a stepan moses sampl e tay d be colle cted and teste d no less than 4-6 weeks later . Not Available [facility] (Lab) [address] [place], [address], 01/25/2023 21:16:19 01/22/20 23 01/21/2023 HSV 1 AND 2 IGG hsv-2 IgG Ab, result Negati ve negati ve Not Available [facility] (Lab) [address] [place], [address], 01/25/2023 21:16:19 01/22/20 23 01/21/2023 HSV 1 AND 2 IGG hsv-2 IgG Ab, index value 0.15 index 0.00-0 .89 Not Available [facility] (Lab) [address], [place], [address], 01/25/2023 21:16:19 01/22/20 23 01/21/2023 HSV 1 AND 2 IGG hsv-2 IgG Ab, interpretati on see below No detec table antib odies to HSV-2 were found . A negat dmitri resul t gener ally indic ates that the patie nt has not been infec ryan, but does not alway s rule out acute HSV infec tion. If clini ansley expos ure to HSV is suspe cted despi te a negat dmitri findi ng, a secon d sampl e shoul d be colle cted and teste d no less than 4-6 weeks later . Not Available [facility] (Lab) [address], [place], [address], 01/25/2023 21:16:19 01/22/20 23 01/21/2023 TRICH OMONA S VAGIN IRINEO DNA BY PCR specimen type Urine Not Available [facility] (Lab) [address] [place], [address], 01/25/2023 21:16:19 01/22/20 23 01/21/2023 TRICH OMONA S VAGIN IRINEO DNA BY PCR trichomonas vaginalis Negati ve negati ve Not Available [facility] (Lab) [address], [place], [address], 01/25/2023 21:16:19 01/22/20 23 01/21/2023 TRICH OMONA S VAGIN IRINEO DNA BY PCR comment SEE BELOW Trich omona s vagin irineo (TV) is the most preva lent non-v iral sexua lly trans mitte d infec tion in the [place], with CDC estim ating 1 armando on new cases diagn osed annua lly. CDCs diagn ostic consi derat ions for TV inclu de: Diagn ostic testi ng for TV shoul d be perfo rmed in women seeki ng care for vagin al disch arge Consi caroline scree nick for TV in perso ns recei ving care in high- preva lence setti ngs and for asymp tomat ic perso ns at high risk for infec tion. Routi ne scree nick for TV in all women with HIV infec tion is recom jose d at entry to care and then at least annua lly there after . STI testi ng is criti ansley for the diagn osis and manag ement of commo n uroge nital disea se syndr omes that prese nt with simil ar signs and sympt oms, or no sympt oms at all. In women , it is estim ated that 70% of TV cases have no sympt oms and the healt h conse quenc es of these undia gnose d infec tions are profo und. TV is assoc iated with non-g onoco ccal ureth ritis in men, as well as cervi citis , Pelvi c Infla mmato ry Disea se (PID) , and adver se pregn sabrina deliv cl, and low weigh t). Addit ional ly, TV can incre ase the risk of HIV trans holly on in eithe r gende r. This test is perfo rmed pursu ant to an agree ment with Alexy Cass pantoja Not Available [facility] (Lab) [address], [place], [address], 01/25/2023 21:16:19 01/22/20 23 01/21/2023 SARS CoV 2 (COVI D-19) Ag, QL, IA, upper respi rator y speci men Result negati ve Not Available [facility] [address] [place], [address], 01/21/2023 11:26:08 01/22/20 23 01/21/2023 rapid strep group A, throa t Strep negati ve Not Available [facility] [address] [place], [address], 01/21/2023 11:25:59 01/22/20 23 01/21/2023 urina lysis , dipst ick, auto Leukocytes Negati ve 0 Not Available [facility] [address] [place], [address], 01/21/2023 11:07:01 01/22/20 23 01/21/2023 urina lysis , dipst ick, auto Nitrite negati ve Not Available [facility] [address] [place], [address], 01/21/2023 11:07:01 01/22/20 23 01/21/2023 urina lysis , dipst ick, auto Urobilinogen 0.2 Not Available [facility] [address] [place], [address], 01/21/2023 11:07:01 01/22/20 23 01/21/2023 urina lysis , dipst ick, auto Protein Negati ve Not Available [facility] [address] [place], [address], 01/21/2023 11:07:01 01/22/20 23 01/21/2023 urina lysis , dipst ick, auto pH 7.0 Not Available [facility] [address] [place], [address], 01/21/2023 11:07:01 01/22/20 23 01/21/2023 urina lysis , dipst ick, auto Blood Negati ve 0 Not Available [facility] [address], [place], [address], 01/21/2023 11:07:01 01/22/20 23 01/21/2023 urina lysis , dipst ick, auto Specific [place] 1.010 Not Available [facility] [address], [place], [address], 01/21/2023 11:07:01 01/22/20 23 01/21/2023 urina lysis , dipst ick, auto Ketone Negati ve Not Available [facility] [address], [place], [address], 01/21/2023 11:07:01 01/22/20 23 01/21/2023 urina lysis , dipst ick, auto Bilirubin Negati ve Not Available [facility] [address], [place], [address], 01/21/2023 11:07:01 01/22/20 23 01/21/2023 urina lysis , dipst ick, auto Glucose Negati ve Not Available [facility] [address], [place], [address], 01/21/2023 11:07:01 01/22/20 23 01/21/2023 urina lysis , dipst ick, auto Appearance Clear Not Available [facility] [address], [place], [address], 01/21/2023 11:07:01 01/22/20 23 01/21/2023 urina lysis , dipst ick, auto Color Yellow Not Available [facility] [address], [place], [address], 01/21/2023 11:07:01 01/22/20 23 01/21/2023 pregn sabrina test, urine HCG negati ve Not Available [facility] [address] [place], [address], 01/21/2023 11:07:48 Result Notes None recorded. Problems Name Problem SNOMED Code Status Onset Date Resolution Date Notes Provider Name and Address Organization Details Recorded Time Acne 21498054 Active 01/22/20 23 [place] 01/21/2023 10:51:44 Problem Notes None recorded. Procedures Surgical History Date Name Laterality Status Provider Name and Address Organization Details Recorded Time 1 Tonsillectomy completed Caitlyn VELASQUEZ [facility] [place] 01/21/2023 10:51:56 Imaging Results None recorded. Procedure Notes None recorded. Medical Equipment None Reported. Allergies No known drug allergies Medications Name Sig Start Date Stop Date Status Note LastModified by Organization Details LastModified Time fluticasone propionate 50 mcg/actuation nasal spray,suspension active Not Available Not Avail able Not Available spironolactone active Not Available No t Available Not Available Vitals Date Recorded Body height Body mass index (BMI) Body weight Respiratory rate Heart rate Oxygen saturation Oxygen saturation in Arterial blood by Pulse oximetry Systolic blood pressure Diastolic blood pressure Provider Name and Address Organization Details Last Updated DateTime 3 165.1 cm 23.4 kg/m2 01805.1 6 g 16 /min 100 /min 99 % 99 % 118 mm[Hg] 62 mm[Hg] Caitlyn [place] 3 10:54:48 Date Recorded Body height Body mass index (BMI) Body weight Respiratory rate Heart rate Oxygen saturation Oxygen saturation in Arterial blood by Pulse oximetry Provider Name and Address Organization Details Last Updated DateTime 3 165.1 cm 23.4 kg/m2 24277.1 6 g 16 /min 89 /min 98 % 98 % Caitlyn VELASQUEZ Sara [facility] 3 15:31:22 Social History None recorded. Functional Status None recorded. Mental Status None recorded. Family History Nothing Reported. Medical History No medical history recorded. Gynecological HistoryNo gynecological history recorded. Obstetrics History GPAL:G 0 P 0 0 0 0 Past Encounters Encounter ID Performer Location Encounter Start Date Encounter Closed Date Diagnosis/Indication Diagnosis SNOMED-CT Code Diagnosis ICD10 Code Diagnosis Note [id number] Edwin Marinelli [facility] [address] [place] [address] 01/21/2023 10:34:24 01/21/2023 11:40:43 High risk sexual behavior 351177883 Z72.51 Sore throat 840647302 J0 2.9 Exposure t o SARS-CoV-2 447537565 Z20.822 [id number] Zan Baldwin [employer]PER[employer] [facility] [address] [place] [id number] 01/22/2023 15:23:02 01/22/2023 17:14:19 Acute sinusitis 76207758 J01.90 Health Concerns Section Related Observation LastModified by Organization Detai ls LastModified Time None Recorded Concern Status LastModified by Organization Details LastModified Time None Recorded Advance Directives Directive None Recorded Payers Insurance Date Sequence Insurance Name Policy Number Policy [place] Covered Member ID [place] Member ID Guarantor Name 01/21/2023 1 [facility] [id number] [facility] [id number] Kuldip Red Notes Date Note Type Note Provider Name and Address Organization Details Recorded Time 01/21/2023 text/html Sore ThroatRepor ryan bypatient.Location:rig ht side; left side Onset/Timing:gradual onset; 2 days Quality:constant;painf ul;burning;scratchy;sh nicki;swollen;symptoms worse during the day;symptoms worse in the evening Severity:moderate Context:history of strep;others with similar symptoms Associated Symptoms:no fever; no chills; no vomiting; no dysphagia;nausea;throa t hoarseness;swollen glands;postnasal drip;nasal congestion;nasal discharge Patient complains of sore throat and congestion, Patients boyfriend tested positive for covid last week, but initial point of contact happened 11-13 days after he tested negative. Patient would also like STD testing today. Edwin Marinelli [address] [place], [address], [facility] [place] 01/21/2023 11:38:44 01/22/2023 text/html SinusitisReporte d bypatient.Location:eth moid; maxillary Quality:worsening;achi ng Severity:moderate;limi ts daily activities;frequent breathing through the mouth Duration:constant Context:no recent upper respiratory infection; no recent sick contacts Alleviating factors:nothing gives relief Aggravating factors:not worse with change in medication; not worse during an upper respiratory infection (a cold); not worse when allergies are active Associated Symptoms:no fever; no chills; no cough; no hemoptysis; no nausea; no vomiting;nasal discharge;facial pain;sinus pain;sore throat;throat hoarseness;postnasal drainage Patient states symptoms have gotten worse, the feeling of a lump in her throat. She also states new symptoms of acid reflux as well as increased saliva in the mouth. Patient states the sinus pressure has increased as well. Zan Baldwin [employer] SUPERVISOR [address] [facility], [place], [address], [facility] [place] 01/22/2023 16:02:13 OBGyn Episode No OBEpisode recorded.
--- OUTSIDE RECORDS SUMMARY | 2024-08-07 15:59 | XMS_ITS | Encounter Summary ---
Author Organization [facility] Address [address] [place] [address] Phone Care Team Providers Care Blood And Plasma Laboratory Assistant Name Role Phone Donta Morocho MD Primary Care Provider Jameson Barnett MD Unavailable [phone] Leandro Holland MD Unavailable [phone] Encounter Details Date Type Department Care Team (Late st Contact Info) Description 08/06/2024 3:00 PM CDT Office Visit [facility] Surgery [address] [facility] [address] [place] [address] Diane Goldberg NP [address] [facility] [id number] [place] [address] Mass of lower outer quadrant of left breast (Primary Dx); Breast pain Social History Tobacco Use Types Packs/Day Years Used Date Smoking Tobacco: Never Smokeless Tobacco: Never Alcohol Use Standard Drinks/Week Comments Never 0 (1 standard drink = 0.6 oz pur e alcohol) AUDIT-C Answer Date Recorded Q1: How often do you have a drink containing alc ohol? 2-4 times a month 05/31/2024 Q2: How many drinks containi ng alcohol do you have on a typical day when you are drinking? 1 or 2 05/31/2024 Q3: How often do you have si x or more drinks on one occasion? Never 05/31/2024 PHQ-2 Answer Date Recorded PHQ-2 Total Score (If total score is 3 or more points, staff should administer the PHQ-9) 0 08/18/2023 Exercise Vital Sign Answer Date Recorde d On average, how many days pe r week do you engage in moderate to strenuous exercise (like a brisk walk)? 0 days 09/05/2019 On average, how many minutes do you engage in exercise at this level? 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 Gender Identity Not on file Sexual Orientation Not on file documented as of this encounter Plan of Treatment Not on file documented as of this encounter Visit Diagnoses Diagnosis Mass of lower outer quadrant of left breast- Primary Breast pain Mastodynia documented in this encounter Care Teams Blood And Plasma Laboratory Assistant Relationship Specialty Start Date End Date Donta Morocho MD [address] [place] [address] PCP - General Family Medicine 06/06/18 Jameson Barnett MD [address] [place] [address] Consulting Physician Orthopedic Surgery 03/25/23 Leandro [place] MD [address] [place] [address] Consulting Physician Rheumatology 09/08/23 documented as of this encounter
--- OUTSIDE RECORDS SUMMARY | 2024-08-07 15:59 | XMS_ITS | Patient Health Record ---
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 Name Role Phone Donta Morocho MD Primary Care Provider Maycol Peguero Unavailable [phone] Allergies Allergen (clinical drug ingredient) Drug/Non Drug Allergy documented on EMR Reaction Allergy Type Onset Date Status fluconazole Fluconazole Unknown Drug Allergy Act dmitri Results Component Value Reference Range Notes DRUG MONITOR,AMPHETAMINE, W/ CONF, URINE (39927) Reviewed date:04/03/2024 03:55:40 PM Interpretation: Performing Lab:[facility], [facility] [id number], [id number] Isrrael Samson, Director - [id number] [facility] Notes/Report: FASTING: NO Amphetamines NEGATIVE <500 ng/mL Notes and Comments This drug testing is for medical treatment only. Analysis was performed as non-forensic testing and these results should be used only by healthcare providers to render diagnosis or treatment, or to monitor progress of medical conditions. Healthcare Providers needing Interpretation assistance, please contact us at [phone] ( ) M-F, 8am to 10pm EST UDT Reviewed date:12/14/2023 01:53:15 PM Interpretation: Performing Lab: Notes/Report: THC NEG 0 - 50 ng/ml Cocaine NEG 0 - 300 ng/ml Amphetamine NEG 0 - 1000 ng/ml Buprenorphine (BUP) NEG 0 - 10 ng/ml Secobarbital (Bar) NEG 0 - 300 ng/ml Oxazepam (BZO) NEG 0 - 300 ng/ml 4-tnogyjiltg-1,9-anvpeemd-0, 3-diphenyl pyrrolidine (EDDP) NEG 0 - 300 ng/ml Methamphetamine (MET) NEG 0 - 1000 ng/ml Methylenedioxymethamphetamine (MDMA) NEG 0 - 500 ng/ml Morphine (MOP 300/[id number]) NEG 0 - 300 ng/ml Methadone (MTD) NEG 0 - 300 ng/ml Phencyclidine (PCP) NEG 0 - 25 ng/ml Nortriptyline (TCA) NEG 0 - 1000 ng/ml Oxycodone NEG 0 - 300 ng/ml x NEG 0 - 300 ng/ml UDT Reviewed date:03/23/2024 10:02:28 AM Interpretation: Performing Lab: Notes/Report: THC N 0 - 50 ng/ml Cocaine N 0 - 300 ng/ml Amphetamine P 0 - 1000 ng/ml Buprenorphine (BUP) N 0 - 10 ng/ml Secobarbital (Bar) N 0 - 300 ng/ml Oxazepam (BZO) N 0 - 300 ng/ml 3-csuhwlayaa-0,9-twqkticy-5, 3-diphenyl pyrrolidine (EDDP) N 0 - 300 ng/ml Methamphetamine (MET) N 0 - 1000 ng/ml Methylenedioxymethamphetamine (MDMA) N 0 - 500 ng/ml Morphine (MOP 300/[id number]) N 0 - 300 ng/ml Methadone (MTD) N 0 - 300 ng/ml Phencyclidine (PCP) N 0 - 25 ng/ml Nortriptyline (TCA) N 0 - 1000 ng/ml Oxycodone N 0 - 300 ng/ml x N 0 - 300 ng/ml Reason For Referral No Information Medications Medication SIG (Take, Route, Frequency, Duration) Notes Start Date End Date Status Vilazodone HCl 20 MG 1 tablet with food Orally Once a day for 30 days 05/25/2024 Active Triamcinolone Acetonide 0.1 % APPLY TOPICALLY 2 TIMES A DAY NEEDED FOR RASH/ITCH ON BODY. DO NOT USE ON FACE, ARMPITS, OR GROIN External for 30 Days Not-Taking Escitalopram Oxalate 10 MG TAKE 1 TABLET BY MOUTH DAILY for 30 Active Social History Tobacco Use: Social History Observation Description Date Details (start date - stop date) Never Smoker NA - NA Sex Assigned At : Social History Observation Description Sex Assigned At Female Tobacco Control (Standard) Question Answer Notes Tobacco use: Nonsmoker AUDIT-C (Standard) Question Answer Notes Points 4 Interpretation Positive Did you have a drink contain ing alcohol in the past year? Yes How often did you have six o r more drinks on one occasion in the past year? Less than monthly (1 point) How many drinks did you have on a typical day when you were drinking in the past year? 3 or 4 drinks (1 point) How often did you have a dri nk containing alcohol in the past year? 2 to 4 times a month (2 points) Problems Problem Type SNOMED Code ICD Code Onset Dates Problem Status W/U Status Risk Notes Problem 56746112 DAVON (generalized anxiety disorder) (F41.1) Active confirmed Problem 48523101 ADHD, predominantly inattentive type (F90.0) Active confirmed Vital Signs Heart Rate 60 /min 05/25/2024 Height-cm 170.18 cm 05/25/2024 Blood pressure diastolic 81 mm Hg 03/23/2024 Weight-kg 63.05 kg 05/25/2024 Height 67 in 05/25/2024 Blood pressure systolic 118 mm Hg 03/23/2024 Weight 139 lbs 05/25/2024 BMI 21.77 kg/m2 05/25/2024 Procedures Procedure Date Ordered Date Performed Result Body Sit e ADHD Testing 12/09/2023 N/A Encounters Encounter Location Date Provider Diagnosis [facility] [employer] [address] [address] 12/01/2023 Maycol Jeri DAVON (generalized anxiety disorder) F41.1 and ADHD, predominantly inattentive type F90.0 [facility] [employer] [address] [address] 12/09/2023 Maycol Jeri ADHD, predominantly inattentive type F90.0 [facility] [employer] [address] [address] 12/14/2023 Maycol Jeri DAVON (generalized anxiety disorder) F41.1 and ADHD, predominantly inattentive type F90.0 [facility] [employer] [address] [address] 12/23/2023 Maycol Jeri ADHD, predominantly inattentive type F90.0 and DAVON (generalized anxiety disorder) F41.1 [facility], [facility] [address] [place] [address] 01/06/2024 Maycol Jeri [facility], [facility] [address] [place] [address] 01/12/2024 Maycol Jeri ADHD, predominantly inattentive type F90.0 and DAVON (generalized anxiety disorder) F41.1 [facility], [facility] [address] [place] [address] 01/23/2024 Maycol Jeri ADHD, predominantly inattentive type F90.0 and DAVON (generalized anxiety disorder) F41.1 [facility], [facility] [address] [place] [address] 02/06/2024 Maycol Jeri [facility], [facility] [address] [place] [address] 03/23/2024 Maycol Jeri ADHD, predominantly inattentive type F90.0 and DAVON (generalized anxiety disorder) F41.1 [facility], [facility] [address] [place] [address] 05/25/2024 Maycol Jeri ADHD, predominantly inattentive type F90.0 ; DAVON (generalized anxiety disorder) F41.1 and Encounter for screening for depression Z13.31 [facility], [facility] [address] [place] [address] 01/12/2024 Maycol Jeri ADHD, predominantly inattentive type F90.0 [facility], [facility] [address] [place] [address] 01/18/2024 Maycol Jeri [facility], [facility] [address] [place] [address] 01/24/2024 Maycol Jeri [facility], [facility] [address] [place] [address] 02/06/2024 Maycol Jeri [facility], [facility] [address] [place] [address] 02/06/2024 Maycol Jeri [facility], [facility] [address] [place] [address] 01/23/2024 Maycol Jeri [facility], [facility] [address] [place] [address] 01/23/2024 Maycol Wilcox [facility], [facility] [address] [place] [address] 01/24/2024 Maycol Jeri Assessments Encounter Date Diagnosis (ICD Code) Assessment Notes Treatment Notes Treatment Clinical Notes Section Notes 12/01/2023 DAVON (generalized anxiety disorder) (ICD-10 - F41.1) Attention Deficit Disorder (ADD) - Suspected - Assessment: Patient reports concentration issues since childhood, including difficulty with reading and spelling, indicating a potential diagnosis of ADD. - Plan: - Conduct ADHD testing in the next week or two. - Reevaluate after testing and consider appropriate treatment options based on results. Generalized Anxiety Disorder (DAVON) - Assessment: Patient reports spending 4-5 hours daily on anxious thoughts, particularly about family members' health. - Plan: - Start escitalopram 5 mg, beginning with half a tablet once a day for about a week, then increase to a full tablet. Monitor for tolerance and side effects. - Continue weekly counseling sessions with Enedelia Norton. - Reassess in two weeks and adjust medication dosage as needed. Consider switching to sertraline if escitalopram is not tolerated. Occasional Situational Depression - Assessment: Patient experiences occasional situational depression. - Plan: - Monitor response to escitalopram, as it may also help with depressive symptoms. - Encourage continued counseling sessions to address depressive episodes and underlying triggers. Aiden's Disease - Assessment: Patient has Aiden's disease with fluctuating TSH levels, recently ranging from 11 to 3-4. - Plan: - Continue monitoring TSH levels and symptoms. - Coordinate care with primary care physician, Dr. Donta Morocho. Irritable Bowel Syndrome (IBS) - Assessment: Patient has Irritable Bowel Syndrome (IBS). - Plan: - Monitor response to escitalopram, as it may help with IBS symptoms. - Encourage a healthy diet and stress management techniques to alleviate IBS symptoms. Family History of Anxiety and Depression - Assessment: Patient reports a family history of undiagnosed anxiety and depression. - Plan: - Continue to monitor for any emerging symptoms or worsening of existing conditions. - Encourage open communication about mental health within the family and support seeking appropriate treatment if needed. 12/01/2023 ADHD, predominantly inattentive type (ICD-10 - F90.0) Attention Deficit Disorder (ADD) - Suspected - Assessment: Patient reports concentration issues since childhood, including difficulty with reading and spelling, indicating a potential diagnosis of ADD. - Plan: - Conduct ADHD testing in the next week or two. - Reevaluate after testing and consider appropriate treatment options based on results. Generalized Anxiety Disorder (DAVON) - Assessment: Patient reports spending 4-5 hours daily on anxious thoughts, particularly about family members' health. - Plan: - Start escitalopram 5 mg, beginning with half a tablet once a day for about a week, then increase to a full tablet. Monitor for tolerance and side effects. - Continue weekly counseling sessions with Enedelia Norton. - Reassess in two weeks and adjust medication dosage as needed. Consider switching to sertraline if escitalopram is not tolerated. Occasional Situational Depression - Assessment: Patient experiences occasional situational depression. - Plan: - Monitor response to escitalopram, as it may also help with depressive symptoms. - Encourage continued counseling sessions to address depressive episodes and underlying triggers. Aiden's Disease - Assessment: Patient has Aiden's disease with fluctuating TSH levels, recently ranging from 11 to 3-4. - Plan: - Continue monitoring TSH levels and symptoms. - Coordinate care with primary care physician, Dr. Donta Morocho. Irritable Bowel Syndrome (IBS) - Assessment: Patient has Irritable Bowel Syndrome (IBS). - Plan: - Monitor response to escitalopram, as it may help with IBS symptoms. - Encourage a healthy diet and stress management techniques to alleviate IBS symptoms. Family History of Anxiety and Depression - Assessment: Patient reports a family history of undiagnosed anxiety and depression. - Plan: - Continue to monitor for any emerging symptoms or worsening of existing conditions. - Encourage open communication about mental health within the family and support seeking appropriate treatment if needed. 12/09/2023 ADHD, predominantly inattentive type (ICD-10 - F90.0) 12/14/2023 DAVON (generalized anxiety disorder) (ICD-10 - F41.1) Anxiety Symptoms - Assessment: Patient reports improvement in mood and rumination since starting citalopram 2.5 mg and attending therapy. However, anxiety still affects focus and task initiation. Patient notes feeling more stable and less prone to mood swings since starting medication. - Plan: - Continue citalopram 2.5 mg daily for mood stabilization. Inattentive Symptoms - Assessment: Rating scale suggests possible mild inattentive type ADHD, but test results were not congruent. Patient struggles with focus, particularly during studying and task initiation. Patient reports difficulty staying focused while studying, especially when reading complex passages. Test results show average to above-average performance in various attention-relate d metrics. - Plan: - Trial of Qelbree (viloxazine) for faster-acting non-stimulant treatment. - Start with samples and monitor for side effects, including nausea and insomnia. - Instruct patient to report any side effects for dose adjustment. 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 - Plan: - Reassess patient's response to Qelbree and overall functioning after the exam. - Chose Qelbree over stimulant medication due to time constraints and potential anxiety exacerbation. Follow-up - Plan: - Schedule a follow-up appointment after the exam to assess the patient's response to Qelbree and any side effects. - Continue monitoring progress in therapy for anxiety and mood stabilization. - Patient agrees to follow-up after the exam to minimize disruption to study schedule. 12/23/2023 DAVON (generalized anxiety disorder) (ICD-10 - F41.1) Anxiety and Concentration Issues ADHD - Assessment: Patient reports some improvement in anxiety levels and concentration since starting Quilbury 200 mg daily. Mind is quieter, experiencing less frustration while reading and studying. Patient is preparing for an important test next week and feels less anxious about it, reporting being more comfortable and prepared. - Plan: - Continue Quilbury 200 mg daily. - Do not increase dosage at this time due to potential side effects and limited time before the test. Dry Mouth and Increased Thirst - Assessment: Patient experiencing dry mouth and increased thirst, possibly side effects of Quilbury. Managing symptoms by drinking more water and consuming salty foods. - Plan: - Advise patient to continue drinking water and consider sucking on candy to alleviate dry mouth symptoms. - Monitor for any worsening of side effects. - Consider switching to a different medication after the test if symptoms become intolerable. Nausea - Assessment: Patient reports mild nausea, potentially related to Quilbury. - Plan: - Monitor patient's nausea and provide guidance on managing this side effect. - Reevaluate medication regimen after the test if nausea worsens or becomes intolerable. Follow-up Appointment - Assessment: Patient's test scheduled for the 9th of the month, with results expected in about a month. - Plan: - Schedule follow-up appointment for the or 15 of the month. - Assess anxiety and concentration levels after the test. - Determine if any adjustments to medication regimen are necessary. - Evaluate if a higher dosage is needed. 12/23/2023 ADHD, predominantly inattentive type (ICD-10 - F90.0) Anxiety and Concentration Issues ADHD - Assessment: Patient reports some improvement in anxiety levels and concentration since starting Quilbury 200 mg daily. Mind is quieter, experiencing less frustration while reading and studying. Patient is preparing for an important test next week and feels less anxious about it, reporting being more comfortable and prepared. - Plan: - Continue Quilbury 200 mg daily. - Do not increase dosage at this time due to potential side effects and limited time before the test. Dry Mouth and Increased Thirst - Assessment: Patient experiencing dry mouth and increased thirst, possibly side effects of Quilbury. Managing symptoms by drinking more water and consuming salty foods. - Plan: - Advise patient to continue drinking water and consider sucking on candy to alleviate dry mouth symptoms. - Monitor for any worsening of side effects. - Consider switching to a different medication after the test if symptoms become intolerable. Nausea - Assessment: Patient reports mild nausea, potentially related to Quilbury. - Plan: - Monitor patient's nausea and provide guidance on managing this side effect. - Reevaluate medication regimen after the test if nausea worsens or becomes intolerable. Follow-up Appointment - Assessment: Patient's test scheduled for the of the month, with results expected in about a month. - Plan: - Schedule follow-up appointment for the or 15 of the month. - Assess anxiety and concentration levels after the test. - Determine if any adjustments to medication regimen are necessary. - Evaluate if a higher dosage is needed. 01/12/2024 ADHD, predominantly inattentive type (ICD-10 - F90.0) ADHD - Assessment: The patient reported stopping Quillivant due to excessive tiredness and lethargy. She experienced a severe migraine after stopping the medication, which may be related to withdrawal. - Plan: Discontinue Quillivant. Start atomoxetine 25 mg for one week, then increase to 40 mg. Schedule a follow-up appointment in 2-3 weeks to assess the patient's response to the new medication. Anxiety - Assessment: The patient reported increased anxiety due to multiple life stressors, including family issues, LSAT exam difficulties, and thyroid problems. - Plan: Increase the Escitalopram medication dosage from 2.5 mg to 5 mg (full tablet). Send a new prescription for the increased dosage. Monitor the patient's anxiety levels during the follow-up appointment. LSAT Accommodations - Assessment: The patient requested documentation to support her need for extended time during the LSAT exam due to her ADHD diagnosis and medication use. - Plan: Provide the necessary documentation after receiving a release of information from the patient. The patient will send the required information to labs at [facility]. Follow-up Appointment - Plan: Schedule a follow-up appointment in 2 weeks to assess the patient's response to the new ADHD medication and increased anxiety medication dosage. The office staff (Teddy) will contact the patient to set up the appointment. Additional Details - Assessment: The patient experienced technical issues during her previous LSAT attempt and will retake the exam in February. The patient is considering requesting accommodations for extended time (50% extra time) for the LSAT. The patient's thyroid issues are not improving, contributing to her anxiety. 01/12/2024 ADHD, predominantly inattentive type (ICD-10 - F90.0) 01/23/2024 ADHD, predominantly inattentive type (ICD-10 - F90.0) ADHD, Inattentive Type - Assessment: The patient reports difficulty focusing and has not picked up atomoxetine from the pharmacy due to being out of town. - Plan: - Start the patient on a stimulant medication at a lower dose of 10 mg, to be taken in the morning to avoid sleep issues. - Follow-up in 2 weeks to assess the patient's response to the stimulant medication and adjust the dose if necessary. - Patient advised that they can start the medication tomorrow morning to see how they respond. Generalized Anxiety Disorder - Assessment: The patient is currently taking 5 mg of escitalopram but still experiences significant anxiety related to various life stressors, including work, test performance, and student evaluations. - Plan: - Increase the escitalopram dose to 10 mg to help alleviate anxiety symptoms. - Monitor the patient's response to the increased dose of escitalopram during the follow-up visit in 2 weeks. - Advised that increasing escitalopram should be easier on the stomach as the patient is already primed on the lower dose. Accommodation Request for ADHD and Generalized Anxiety Disorder - Assessment: The patient requires a written statement from a qualified professional explaining the need for additional time and the severity of the disorders for an upcoming test, with a deadline of tomorrow. - Plan: - Provide the necessary documentation today, including the diagnosis of ADHD, inattentive type, and generalized anxiety. - Include a rational explanation for the need of additional time and further explanation of the severity of the disorders. - Publish the letter to the patient portal for the patient to download and submit to the appropriate alliance party. - Complete a release of information form during the visit. I attest that I have spend 45 Minutes Before, During and after the encounter for review of notes Yes face to face with the patient, YES assessment and planning Yes and letter writing, review of medical records coordination of care Yes 03/23/2024 ADHD, predominantly inattentive type (ICD-10 - F90.0) 05/25/2024 DAVON (generalized anxiety disorder) (ICD-10 - F41.1) 05/25/2024 ADHD, predominantly inattentive type (ICD-10 - F90.0) 03/23/2024 DAVON (generalized anxiety disorder) (ICD-10 - F41.1) 01/23/2024 DAVON (generalized anxiety disorder) (ICD-10 - F41.1) ADHD, Inattentive Type - Assessment: The patient reports difficulty focusing and has not picked up atomoxetine from the pharmacy due to being out of town. - Plan: - Start the patient on a stimulant medication at a lower dose of 10 mg, to be taken in the morning to avoid sleep issues. - Follow-up in 2 weeks to assess the patient's response to the stimulant medication and adjust the dose if necessary. - Patient advised that they can start the medication tomorrow morning to see how they respond. Generalized Anxiety Disorder - Assessment: The patient is currently taking 5 mg of escitalopram but still experiences significant anxiety related to various life stressors, including work, test performance, and student evaluations. - Plan: - Increase the escitalopram dose to 10 mg to help alleviate anxiety symptoms. - Monitor the patient's response to the increased dose of escitalopram during the follow-up visit in 2 weeks. - Advised that increasing escitalopram should be easier on the stomach as the patient is already primed on the lower dose. Accommodation Request for ADHD and Generalized Anxiety Disorder - Assessment: The patient requires a written statement from a qualified professional explaining the need for additional time and the severity of the disorders for an upcoming test, with a deadline of tomorrow. - Plan: - Provide the necessary documentation today, including the diagnosis of ADHD, inattentive type, and generalized anxiety. - Include a rational explanation for the need of additional time and further explanation of the severity of the disorders. - Publish the letter to the patient portal for the patient to download and submit to the appropriate alliance party. - Complete a release of information form during the visit. I attest that I have spend 45 Minutes Before, During and after the encounter for review of notes Yes face to face with the patient, YES assessment and planning Yes and letter writing, review of medical records coordination of care Yes 01/12/2024 DAVON (generalized anxiety disorder) (ICD-10 - F41.1) ADHD - Assessment: The patient reported stopping Quillivant due to excessive tiredness and lethargy. She experienced a severe migraine after stopping the medication, which may be related to withdrawal. - Plan: Discontinue Quillivant. Start atomoxetine 25 mg for one week, then increase to 40 mg. Schedule a follow-up appointment in 2-3 weeks to assess the patient's response to the new medication. Anxiety - Assessment: The patient reported increased anxiety due to multiple life stressors, including family issues, LSAT exam difficulties, and thyroid problems. - Plan: Increase the Escitalopram medication dosage from 2.5 mg to 5 mg (full tablet). Send a new prescription for the increased dosage. Monitor the patient's anxiety levels during the follow-up appointment. LSAT Accommodations - Assessment: The patient requested documentation to support her need for extended time during the LSAT exam due to her ADHD diagnosis and medication use. - Plan: Provide the necessary documentation after receiving a release of information from the patient. The patient will send the required information to labs at [facility]. Follow-up Appointment - Plan: Schedule a follow-up appointment in 2 weeks to assess the patient's response to the new ADHD medication and increased anxiety medication dosage. The office staff (Teddy) will contact the patient to set up the appointment. Additional Details - Assessment: The patient experienced technical issues during her previous LSAT attempt and will retake the exam in February. The patient is considering requesting accommodations for extended time (50% extra time) for the LSAT. The patient's thyroid issues are not improving, contributing to her anxiety. 12/14/2023 ADHD, predominantly inattentive type (ICD-10 - F90.0) Anxiety Symptoms - Assessment: Patient reports improvement in mood and rumination since starting citalopram 2.5 mg and attending therapy. However, anxiety still affects focus and task initiation. Patient notes feeling more stable and less prone to mood swings since starting medication. - Plan: - Continue citalopram 2.5 mg daily for mood stabilization. Inattentive Symptoms - Assessment: Rating scale suggests possible mild inattentive type ADHD, but test results were not congruent. Patient struggles with focus, particularly during studying and task initiation. Patient reports difficulty staying focused while studying, especially when reading complex passages. Test results show average to above-average performance in various attention-relate d metrics. - Plan: - Trial of Qelbree (viloxazine) for faster-acting non-stimulant treatment. - Start with samples and monitor for side effects, including nausea and insomnia. - Instruct patient to report any side effects for dose adjustment. 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 - Plan: - Reassess patient's response to Qelbree and overall functioning after the exam. - Chose Qelbree over stimulant medication due to time constraints and potential anxiety exacerbation. Follow-up - Plan: - Schedule a follow-up appointment after the exam to assess the patient's response to Qelbree and any side effects. - Continue monitoring progress in therapy for anxiety and mood stabilization. - Patient agrees to follow-up after the exam to minimize disruption to study schedule. 05/25/2024 Encounter for screening for depression (ICD-10 - Z13.31) 12/01/2023 Other Learning About Depression Screening material was printed Attention Deficit Disorder (ADD) - Suspected - Assessment: Patient reports concentration issues since childhood, including difficulty with reading and spelling, indicating a potential diagnosis of ADD. - Plan: - Conduct ADHD testing in the next week or two. - Reevaluate after testing and consider appropriate treatment options based on results. Generalized Anxiety Disorder (DAVON) - Assessment: Patient reports spending 4-5 hours daily on anxious thoughts, particularly about family members' health. - Plan: - Start escitalopram 5 mg, beginning with half a tablet once a day for about a week, then increase to a full tablet. Monitor for tolerance and side effects. - Continue weekly counseling sessions with Enedelia Norton. - Reassess in two weeks and adjust medication dosage as needed. Consider switching to sertraline if escitalopram is not tolerated. Occasional Situational Depression - Assessment: Patient experiences occasional situational depression. - Plan: - Monitor response to escitalopram, as it may also help with depressive symptoms. - Encourage continued counseling sessions to address depressive episodes and underlying triggers. Aiden's Disease - Assessment: Patient has Aiden's disease with fluctuating TSH levels, recently ranging from 11 to 3-4. - Plan: - Continue monitoring TSH levels and symptoms. - Coordinate care with primary care physician, Dr. Donta Morocho. Irritable Bowel Syndrome (IBS) - Assessment: Patient has Irritable Bowel Syndrome (IBS). - Plan: - Monitor response to escitalopram, as it may help with IBS symptoms. - Encourage a healthy diet and stress management techniques to alleviate IBS symptoms. Family History of Anxiety and Depression - Assessment: Patient reports a family history of undiagnosed anxiety and depression. - Plan: - Continue to monitor for any emerging symptoms or worsening of existing conditions. - Encourage open communication about mental health within the family and support seeking appropriate treatment if needed. 03/23/2024 Other Night Sweats - Assessment: Patient reports night sweats since increasing Lexapro to 10 mg. Symptoms resolved during a week-long break from the medication and returned upon restarting. Patient also reports increased sweating in general with Lexapro. - Plan: - Taper off Lexapro by reducing the dose to 5 mg for 2 weeks, then discontinue. - Monitor the resolution of night sweats. Anxiety - Assessment: Patient reports minimal improvement in anxiety with Lexapro but significant improvement with Adderall. - Plan: - Discontinue Lexapro. - Initiate buspirone for anxiety management. Start with 5 mg in the morning for a week, then increase to 5 mg twice a day. - Reevaluate in 6 weeks to 2 months. - Educate patient that buspirone acts differently from Lexapro and may take about 3 weeks to start working. Mood - Assessment: Patient reports improved mood with Adderall, feeling happier and more put together. - Plan: - Continue Adderall as prescribed. - Patient to call for refills 7-10 days before running out. - Monitor mood during follow-up visits. Insomnia - Assessment: Patient inquires about Adderall causing insomnia. - Plan: - Educate patient on the potential for Adderall to cause insomnia if taken too late in the day. - Recommend taking the medication earlier if insomnia becomes an issue. Medication Management - Plan: - Send buspirone and Adderall prescriptions to [facility]. - Patient has enough Lexapro to taper off without needing a new prescription. - No blood work needed at this time, as annual monitoring is sufficient. - Inform patient of $10 charge for controlled substance prescription (Adderall) each time it's sent. Follow-up - Plan: - Schedule a follow-up appointment in 6 weeks to 2 months to assess the effectiveness of the new medication regimen and monitor for any side effects or concerns. Other - Assessment: Patient reports positive experience with extended time accommodation for recent test. 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 Mood instability and anxiety Assessment: Patient reports increased mood instability and anxiety symptoms since discontinuing previous psychiatric medications, including escitalopram and Adderall. Symptoms include feeling more emotionally labile, irritable, and on the verge of tears. Patient also notes an elevated resting heart rate (from 49 to 55-56 bpm) as measured by a personal tracking device, which she attributes to increased stress and anxiety. These symptoms appear to be exacerbated by current life stressors, including pending law school applications and anticipated major life changes. Plan: - Start vilazodone 20 mg PO daily with food, increasing to 40 mg daily after one week - Patient informed of potential side effects, including initial loose stools - Follow up in one month to assess medication efficacy and tolerability - Monitor blood pressure and weight Life transitions and stress Assessment: Patient is experiencing significant stress related to law school applications and anticipated major life changes, including potential relocation and job changes. This stress is contributing to her mood instability and anxiety symptoms. Plan: - Encourage ongoing stress-reductio n techniques - Suggest creating an [place] sheet to rank law school offers based on personal priorities to aid in decision-making Disclaimer: This note has been transcribed using speech recognition software and serves as a reflection of the patient's visit. While efforts have been made to ensure accuracy, there may be errors, including farm tractor mechanic inaccuracies and misspellings of medication names. This document should not be considered a verbatim record, and any discrepancies should be verified with the provider. Plan Of Treatment Pending Test Test Name Order Date UDT 12/01/2023 ADHD Testing 12/09/2023 Future Test Test Name Order Date ADHD Testing 12/01/2023 Insurance Providers Payer Name Payer Address Payer Phone Subscriber Number Group Number Insured Name Patient Relationship to Insured Coverage Start Date Coverage End Date [facility] [address] [place] [phone] [id number] RosannaAlice aguillonny Self - patient is the insured Medical (General) History Medical History History ICD Code abdominal aortic aneurysm: No atrial fibrillation: No chronic fatigue syndrome: No essential tremor: No hyperlipidemia: No hypertension: No Parkinson's disease: No restless leg syndrome: No stroke: No subdural hematoma: No type 1 diabetes mellitus: No type 2 diabetes mellitus: No vitamin B12 deficiency: No vitamin D deficiency: No Imported from Highlights: On May 18, 2024, the patient had an encounter for 'Orders Only' with Dr. Favian Mejia MD, PhD, at [facility]. The significant medical condition noted during this visit was Acne vulgaris. No hospitalizations or additional testing were reported in this encounter. Surgical History Surgery Date(Month/Year) tonsils removed 2009
--- OUTSIDE RECORDS SUMMARY | 2024-08-07 15:59 | XMS_ITS | Encounter Summary ---
Author Organization [facility] Healthcare Address [address] [place] [address] Care Team Providers Care Roving Or Yarn Color Checker Name Role Phone Donta Morocho MD Primary Care Provider Jameson Barnett MD Unavailable [phone] Leandro Holland MD Unavailable [phone] Encounter Details Date Type Department Care Team (Late st Contact Info) Description 06/25/2024 Results Follow-Up 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 Gender Identity Not on file Sexual Orientation Not on file documented as of this encounter Plan of Treatment Not on file documented as of this encounter Visit Diagnoses Not on filedocumented in this encounter Care Teams Roving Or Yarn Color Checker Relationship Specialty Start Date End Date Donta Morocho MD [address] [place] [address] PCP - General Family Medicine 06/06/18 Jameson Barnett MD [address] [place] [address] Consulting Physician Orthopedic Surgery 03/25/23 Leandro Holland MD [address] [place] [address] Consulting Physician Rheumatology 09/08/23 documented as of this encounter
--- OUTSIDE RECORDS SUMMARY | 2024-08-07 15:59 | XMS_ITS | Encounter Summary ---
Author Organization [facility] Healthcare Address [address] [place] [address] Care Team Providers Care Insulation Helper Name Role Phone Donta Morocho MD Primary Care Provider Jameson Barnett MD Unavailable [phone] Leandro Holland MD Unavailable Reason for Referral * Diagnostic Imaging (Routine) - Closed Specialty Diagnoses / Procedures Referred By Reema t Referred To Contact Diagnoses Mass of left breast, unspecified quadrant Procedures US Breast Left Limited Diane Goldberg NP [address] [facility] [id number] [place] [address] Phone: tel: fax: [address] [phone] Referral ID Status Reason Start Date Expiration Date Visits Re quested Visits Authorized [id number] Closed 07/31/2024 08/30/2025 1 1 Reason for Visit * Diagnostic Imaging (Routine) - Closed Specialty Diagnoses / Procedures Referred By Contzenon t Referred To Contact Diagnoses Mass of left breast, unspecified quadrant Procedures US Breast Left Limited Diane Goldberg NP [address] [facility] [id number] [place] [address] Phone: tel: fax: [address] [place] [address] Referral ID Status Reason Start Date Expiration Date Visits Re quested Visits Authorized [id number] Closed 07/31/2024 08/30/2025 1 1 Encounter Details Date Type Department Care Team (Latest Contact Info) Description 08/06/2024 3:00 PM CDT - 08/06/2024 11:59 PM CDT Hospital Encounter [facility] - Breast Imaging [address] [facility] [address] [place] [address] Mass of left breast, unspecified quadrant Discharge Disposition: Discharge to home or self care Social History Tobacco Use Types Packs/Day Years [...] on file 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 Gender Identity Not on file Sexual Orientation Not on file documented as of this encounter Last Filed Vital Signs Vital Sign Reading Time Taken Comments Blood Pressure - - Pulse - - Temperature - - Respiratory Rate - - Oxygen Saturation - - Inhaled Oxygen Concentration - - Weight 60.3 kg (133 lb) 08/06/2024 3:07 PM CDT Height 170.2 cm (5' 7) 08/06/2024 3:07 PM CDT Body Mass Index 20.83 08/06/2024 3:07 PM CDT documented in this encounter Medications at Time of Discharge levothyroxine (SYNTHROID) 25 mcg tablet Take 1 tablet (25 mcg total) by mouth daily 30 tablet 6 06/25/2024 mupirocin (BACTROBAN) 2 % ointmentIndicati ons:Boils of multiple sites Apply topically 2 (two) times a day 22 g 3 07/12/2024 spironolactone (ALDACTONE) 50 mg tabletIndication s:Acne vulgaris Take 1 tablet (50 mg total) by mouth 2 (two) times a day 60 tablet 11 05/18/2024 documented as of this encounter Discharge Disposition Disposition Code Departure Means Destination Discharge to home or self care documented in this encounter Plan of Treatment Not on file documented as of this encounter Procedures Procedure Name Priority Date/Time Associated Diagnosis Comments US BREAST LEFT LIMITED Schedule Routine, Read Routine (OP Routine) 08/06/2024 3:21 PM CDT Mass of left breast, unspecified quadrant documented in this encounter Results * US Breast Left Limited (08/06/2024 3:21 PM CDT) Anatomical Region Laterality Modality Breast Left Ultrasound 08/06/2024 3:16 PM CDT Impressions 08/06/2024 4:04 PM CDT No sonographic correlate for area of clinical concern in left breast. In the absence of imaging findings, any decision for further intervention should be based on the clinical assessment. OVERALL FINAL ASSESSMENT: BI-RADS Category 1: Negative. RECOMMENDATION: Continued clinical follow-up is recommended. Unless earlier screening is clinically indicated, recommend annual screening mammography beginning at 40 years of age. Dictated by: Phong Samson MD The radiology attending physician has personally reviewed this study, and had reviewed and/or edited this written report and agrees with it. Electronically signed by: Audrey Araan M.D. Narrative 08/06/2024 4:04 PM CDT EXAMINATION: LEFT BREAST ULTRASOUND HISTORY: 23-year-old woman with palpable LEFT breast abnormality COMPARISON: Breast MRI 03/24/23, diagnostic breast imaging 03/02/23 TECHNIQUE: Directed ultrasound evaluation of the LEFT breast was performed by a trained client professional and by Dr. Arana. ULTRASOUND FINDINGS: Targeted ultrasound of the LEFT breast at the site of palpable abnormality at 4:30, 4 cm from the nipple demonstrates dense fibroglandular breast tissue without suspicious cystic or solid mass identified. Procedure Note Audrey Arana MD - 08/06/2024 EXAMINATION: LEFT BREAST ULTRASOUND HISTORY: 23-year-old woman with palpable LEFT breast abnormality COMPARISON: Breast MRI 03/24/23, diagnostic breast imaging 03/02/23 TECHNIQUE: Directed ultrasound evaluation of the LEFT breast was performed by a trained client professional and by Dr. Arana. ULTRASOUND FINDINGS: Targeted ultrasound of the LEFT breast at the site of palpable abnormality at 4:30, 4 cm from the nipple demonstrates dense fibroglandular breast tissue without suspicious cystic or solid mass identified. IMPRESSION: No sonographic correlate for area of clinical concern in left breast. In the absence of imaging findings, any decision for further intervention should be based on the clinical assessment. OVERALL FINAL ASSESSMENT: BI-RADS Category 1: Negative. RECOMMENDATION: Continued clinical follow-up is recommended. Unless earlier screening is clinically indicated, recommend annual screening mammography beginning at 40 years of age. Dictated by: Phong Samson MD The radiology attending physician has personally reviewed this study, and had reviewed and/or edited this written report and agrees with it. Electronically signed by: Audrey Arana M.D. Diane Goldberg [facility] MAMMO PROCEDURES Final Result documented in this encounter Visit Diagnoses Diagnosis Mass of left breast, unspecified quadrant documented in this encounter Care Teams Insulation Helper Relationship Specialty Start Date End Date Donta Morocho MD [address] [place] [address] PCP - General Family Medicine 06/06/18 Jameson Barnett MD [address] [place] [address] Consulting Physician Orthopedic Surgery 03/25/23 Leandro Holland MD [facility] [place] [address] Consulting Physician Rheumatology 09/08/23 documented as of this encounter
--- OUTSIDE RECORDS SUMMARY | 2024-08-07 16:00 | XMS_ITS | Referral Summary ---
Author Organization [facility] Address [address] [place] [address] Care Team Providers Care Government Affairs Fellow Name Role Phone Donta Morocho MD Primary Care Provider Jameson Barnett MD Unavailable [phone] Leandro Holland MD Unavailable [phone] Encounters Date Type Department Care Team Description 08/06/2024 3:00 PM CDT - 08/06/2024 11:59 PM CDT Hospital Encounter [facility] - Breast Imaging [address] [place] [id number] Mass of left breast, unspecified quadrant Discharge Disposition: Discharge to home or self care 08/06/2024 3:00 PM CDT Office Visit [facility] Surgery [address] [place] [phone] Diane Goldberg NP Mass of lower outer quadrant of left breast (Primary Dx); Breast pain 07/31/2024 Orders Only [facility] Surgery [address] [place] [phone] Diane Goldberg NP Mass of left breast, unspecified quadrant (Primary Dx) 07/30/2024 Telephone [facility] Obstetrics and Gynecology [address] [place] [address] Carlee Estrella Scheduling Appointments (//) 07/30/2024 Orders Only [facility] Surgery [address] [place] [phone] Diane Goldberg NP 07/26/2024 Telephone [facility] Obstetrics and Gynecology [address] [place] [address] Carlee Estrella Scheduling Appointments (/) 07/18/2024 Telephone [facility] Obstetrics and Gynecology [address] [place] [address] Carlee Estrella Scheduling Appointments (//) 07/11/2024 Telephone [facility] Obstetrics and Gynecology [facility] [place], [place] [phone] Carlee Estrella Scheduling Appointments 06/25/2024 Results Follow-Up [facility] [address] [address] [facility] 06/19/2024 3:15 PM CDT Office Visit [facility] [address] [phone] Hugo Castellanos MD Subclinical hypothyroidism (Primary Dx) 05/31/2024 2:54 PM CDT - 05/31/2024 11:59 PM CDT Hospital Encounter [facility] [address] [place] [address] Routine screening for STI (sexually transmitted infection) Discharge Disposition: Discharge to home or self care 05/31/2024 1:45 PM CDT Office Visit [facility] Obstetrics and Gynecology [address] [place] [address] 7th Floor [address] [place] [address] Joaquin Manzo MD Well woman exam (Primary Dx); Routine screening for STI (sexually transmitted infection) 05/28/2024 Telephone [facility] Obstetrics and Gynecology [facility] 7th Floor [address] [place] [address] Susana Landa 05/18/2024 Orders Only [facility] Dermatology [address] [place] [address] [address] [place] [address] Favian Meija IV, MD PhD Acne vulgaris from Last 3 Months Allergies Active Allergy Reactions Criticality Noted Date Comments Fluconazole Flushing (skin) Low 12/22/2020 Medications spironolactone (ALDACTONE) 50 mg tabletIndicatio ns:Acne vulgaris Take 1 tablet (50 mg total) by mouth 2 (two) times a day 60 tablet 11 5 Active levothyroxine (SYNTHROID) 25 mcg tablet Take 1 tablet (25 mcg total) by mouth daily 30 tablet 6 5 06/26/19 26 Active mupirocin (BACTROBAN) 2 % ointmentIndicat ions:Boils of multiple sites Apply topically 2 (two) times a day 22 g 3 5 Active doxycycline (VIBRAMYCIN) 100 mg capsuleIndicati ons:Boils of multiple sites Take 1 tablet/capsule (100 mg total) by mouth 2 (two) times a day for 14 days 28 tablet/capsul e 3 5 07/27/19 25 Hospital, Clinic, or Other Facility Administered Medication Ordered Dose Route Frequency Start Date End Date Status levonorgestreL (KYLEENA) 17.5 mcg/24 hrs (5 yrs) 19.5 mg IUD 1 eachIndications:En counter for IUD insertion 1 each intrauterine Continuous (implanted device) 10/04/2019 5 Active Active Problems Problem Noted Date Diagnosed Date Arthralgia 10/17/2023 Assessment & Plan (10/17/2023 12:08 PM CDT): Low moderate cdai 13. Has long hx of joint pain with a hx of lt hip labrum tear also. Will check serologies, rt hand US and xrays and re-evaluate in 2 weeks. Has hx of + faviola 1:160 in past and has dry mouth, occ oral ulcers and sun rashes suspicious for a ctd/sle. She also has neck pain but at end of the day so does not appear inflammatory but will still check hla b27. Her mother has a diagnosis of a spondyloarthropathy. Her maternal grandfather had RA. Seen with Dr. Holland today. 1 h spent with pt between Dr. Holland and myself. FAVIOLA positive 10/17/2023 Assessment & Plan (10/17/2023 12:08 PM CDT): See discussion above. Encounter for long-term (current) use of medicat ions 10/17/2023 Assessment & Plan (10/17/2023 12:09 PM CDT): + faviola 1:160 with pcp 2023 Mother has spondyloarthropathy/mat gfather had RA Rash 10/17/2023 Assessment & Plan (10/17/2023 7:38 AM CDT): Saw derm 09/28/2023 due to a migratory asymptomatic rash with initial onset in April with lower ext involvement, subsequently migrating to involve hip/buttock region, not blanching, otherwise asx and not responsive to moderate potency topical steroid. Per endo, unlikely related to Aiden thyroiditis and normal CBC 07/2023. 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 Schamberg disease represents the most common type of pigmented purpuric dermatoses (PPDs), a chronic, benign, cutaneous eruptions characterized by petechiae, purpura, and increased skin pigmentation Left hip pain 10/17/2023 Assessment & Plan (10/17/2023 12:09 PM CDT): Has hx of lt labrum tear. Had a lt hip bursa steroid inj but did not help. Will refer pt to Dr. Spivey for 2nd opinion. Neck pain 10/17/2023 Assessment & Plan (10/17/2023 12:09 PM CDT): Check hla b27. Aiden's thyroiditis 09/30/2022 Assessment & Plan (04/21/2023 11:04 AM CLINICAL NUTRITION MANAGER): Start Tirosint 13 mcg daily Repeat TSH in 3 months Assessment & Plan (09/30/2022 4:52 PM CDT): I looked at so hard thyroid under ultrasound. Her thyroid gland is a very in homogeneous, with sonographic appearance of Aiden's, with dominant right upper lobe nodule As indicated by elevated TPO antibodies and ultrasonographic appearance. I explained to the patient how the treatment of Aiden's thyroiditis is towards a thyroid dysfunction e.g. treating hyper or hypothyroidism if present. Thyroid nodule 09/30/2022 Assessment & Plan (08/18/2023 4:32 PM CDT): Without significant changes as per ultrasound done today Assessment & Plan (04/21/2023 11:04 AM CLINICAL NUTRITION MANAGER): Will repeat thyroid ultrasound during next office visit Assessment & Plan (09/30/2022 4:48 PM CDT): Right, isoechoic poorly defined nodule Recommended FNA biopsy. The patient agrees. Scheduled for next week Subclinical hypothyroidism 09/30/2022 Assessment & Plan (08/18/2023 4:32 PM CDT): Will try again low-dose levothyroxine with Tirosint , 13 mcg, liquid form. She will call me in 4 6 weeks to see how this is working for her Assessment & Plan (09/30/2022 4:53 PM CDT): She has subclinical hypothyroidism with some symptoms that may attributed to it. I gave to the patient the option of either started levothyroxine therapy or continue observation, since there fluctuations in the TSH without persistent elevation. 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 Immunizations Immunization Administration Dates Next Due Flucelvax Influenza Quad 02/24/2019 Influenza, Quadrivalent, Split, Intramuscular Influenza, Quadrivalent, Spl it, Preservative Free, Intramuscular 12/03/2019 Influenza, Unspecified 01/30/2023 Meningococcal MCV4P (Menactra) 11/18/2016 Tdap 10/29/2010 Varicella 10/29/2013 Social History Tobacco Use Types Packs/Day Years Used Date Smoking Tobacco: Never Smokeless Tobacco: Never Tobacco Cessation:Counseling Given: Not Answered Alcohol Use Standard Drinks/Week Comments Never 0 [...] on file Legal Sex Female 1:19 AM CLINICAL NUTRITION MANAGER Gender Identity Not on file Sexual Orientation Not on file Last Filed Vital Signs Vital Sign Reading Time Taken Comments Blood Pressure 102/60 06/19/2024 3:49 PM CDT Pulse 78 06/19/2024 3:49 PM CDT Temperature - - Respiratory Rate 20 06/19/2024 3:49 PM CDT Oxygen Saturation 97% 10/17/2023 8:31 AM CDT Inhaled Oxygen Concentration - - Weight 60.3 kg (133 lb) 08/06/2024 3:07 PM CDT Height 170.2 cm (5' 7) 08/06/2024 3:07 PM CDT Body Mass Index 20.83 08/06/2024 3:07 PM CDT Plan of Treatment Not on file Procedures Procedure Name Priority Date/Time Associated Diagnosis Comments US BREAST LEFT LIMITED Schedule Routine, Read Routine (OP Routine) 08/06/2024 3:21 PM CDT Mass of left breast, unspecified quadrant T4, FREE Routine 08/06/2024 1:33 PM CDT Aiden's thyroiditis TSH Routine 08/06/2024 1:33 PM CDT Aiden's thyroiditis TSH Routine 06/20/2024 2:43 PM CDT Subclinical hypothyroidism THYROID PEROXIDASE ANTIBODY Routine 06/20/2024 2:43 PM CDT Subclinical hypothyroidism T3, FREE Routine 06/20/2024 2:43 PM CDT Subclinical hypothyroidism T4, FREE Routine 06/20/2024 2:43 PM CDT Subclinical hypothyroidism TRICHOMONAS VAGINALIS PCR Routine 05/31/2024 5:00 PM CDT Routine screening for STI (sexually transmitted infection) N. GONORRHOEAE/C. TRACHOMATIS AMPLIFICATION Routine 05/31/2024 5:00 PM CDT Routine screening for STI (sexually transmitted infection) PAP ONLY Routine 05/09/2023 10:18 AM CDT Encounter for gynecological examination HEPATITIS C ANTIBODY Routine 10/16/2019 1:36 PM CDT Potential exposure to STD from Last 3 Months or Most Recently Relevant to Health Maintenance Results * US Breast Left Limited (08/06/2024 [...] it. Electronically signed by: Audrey Arana M.D. Narrative 08/06/2024 4:04 PM CDT EXAMINATION: LEFT BREAST ULTRASOUND HISTORY: 23-year-old woman with palpable LEFT breast abnormality COMPARISON: Breast MRI 03/24/23, diagnostic breast imaging 03/02/23 TECHNIQUE: Directed ultrasound evaluation of the LEFT breast was performed by a trained supervisor acoustical tile carpenters and by Dr. Arana. ULTRASOUND FINDINGS: Targeted [...] LEFT breast was performed by a trained supervisor acoustical tile carpenters and by Dr. Arana. ULTRASOUND FINDINGS: Targeted [...] signed by: Audrey Arana M.D. Diane Goldberg NP IMG MAMMO PROCEDURES Final Result * (ABNORMAL) TSH (08/06/2024 1:33 PM CDT) TSH 7.79(H) mIU/L [facility] Comment: Reference Range > or = 20 Years 0.40-4.50 Ranges First trimester 0.26-2.66 Second trimester 0.55-2.73 Third trimester 0.43-2.91 Blood 08/06/2024 1:33 PM CDT 08/06/2024 1:33 PM CDT Narrative [facility] - 08/07/2024 1:37 AM CDT FASTING:NO FASTING: NO Hugo Castellanos MD LAB BLOOD ORDERABLES Final Resul t Performing Organization Address [facility] Co de Phone Number [facility] [address] [place] [address] * T4, free (08/06/2024 1:33 PM CDT) Free T4 1.1 0.8 - 1.8 ng/dL [facility] Blood 08/06/2024 1:33 PM CDT 08/06/2024 1:33 PM CDT Narrative [facility] - 08/07/2024 1:37 AM CDT FASTING:NO FASTING: NO Hugo Castellanos MD LAB BLOOD ORDERABLES Final Resul t Performing Organization Address [facility] de Phone Number [facility] [address] [place] [address] * (ABNORMAL) Thyroid peroxidase antibody (TPO) (06/20/2024 2:43 PM CDT) Thyroperoxidase ab 886(H) <9 IU/mL [facility] Blood 06/20/2024 2:43 PM CDT 06/20/2024 2:44 PM CDT Hugo Castellanos MD LAB BLOOD ORDERABLES Final Resul t Performing Organization Address [facility] Co de Phone Number [facility] [address] [place] [address] * T3, free (06/20/2024 2:43 PM CDT) Free T3 3.3 2.3 - 4.2 pg/mL [facility] Blood 06/20/2024 2:43 PM CDT 06/20/2024 2:44 PM CDT Hugo Castellanos MD LAB BLOOD ORDERABLES Final Resul t Performing Organization Address [facility] de Phone Number [facility] [address] [phone] * (ABNORMAL) TSH (06/20/2024 2:43 PM CDT) Pathologist [facility] TSH 8.63(H) mIU/L [facility] Comment: Reference Range > or = 20 Years 0.40-4.50 Ranges First trimester 0.26-2.66 Second trimester 0.55-2.73 Third trimester 0.43-2.91 Blood 06/20/2024 2:43 PM CDT 06/20/2024 2:44 PM CDT Hugo Castellanos MD LAB BLOOD ORDERABLES Final Resul t Performing Organization Address [facility] de Phone Number [facility] [address] [place] [address] * T4, free (06/20/2024 2:43 PM CDT) Pathologist [facility] Free T4 1.2 0.8 - 1.8 ng/dL [facility] Blood 06/20/2024 2:43 PM CDT 06/20/2024 2:44 PM CDT Hugo Castellanos MD LAB BLOOD ORDERABLES Final Resul t Performing Organization Address [facility] de Phone Number [facility] [address] [place] [address] * N. gonorrhoeae/C. trachomatis Amplification Endocervical (05/31/2024 5:00 PM CDT) Pathologist [facility] C. trachomatis Not Detected [facility] N. gonorrhoeae Not Detected [facility] Comment: Interpretive Data This assay detects Chlamydia trachomatis and Neisseria gonorrhoeae by nucleic acid amplification testing (NAAT). This assay has been cleared by the [place] Food and Drug administration. The performance characteristics of this test have been verified by the [facility] Molecular Infectious Disease laboratory. The performance characteristics of this test have not been evaluated in individuals less than 14 years of age. Current Interpretive Data was last revised on 2022. Endocervical (None) 06/01/19 5:00 PM CDT 05/31/2024 5:26 PM CDT Joaquin Manzo MD LAB MICROBIOLOGY - GENERAL ORDERABLES Final Result Performing Organization Address [facility] de Phone Number [facility]ON[facility] [place] [address] [facility] * Trichomonas vaginalis PCR Endocervical (05/31/2024 5:00 PM CDT) Trichomonas DNA Not Detected [facility] Comment: Interpretive Data This assay detects Trichomonas vaginalis by nucleic acid amplification testing (NAAT). This assay has been cleared by the [place] Food and Drug administration. The performance characteristics of this test have been verified by the [facility] Infectious Disease laboratory. The performance of this test has not been evaluated in individuals less than 18 years of age. Current Interpretive Data was last revised on 2022. Endocervical 05/31/2024 5:00 PM CDT 05/31/2024 5:26 PM CDT Joaquin Manzo MD LAB MICROBIOLOGY - GENERAL ORDERABLES Final Result Performing Organization Address [facility] Co de Phone Number [facility] Department [place] [address] [facility] * Pap Only (Cytology Component) (05/09/2023 10:18 AM CDT) Thin prep (Pap test) 05/09/2023 10:18 AM CDT 05/09/2023 10:18 AM CDT Narrative PATHOLOGY CH - 05/11/2023 10:18 AM CDT [facility] Department of Pathology [address] [place] [address] Final Report Note to Patients: This report may contain a detailed description of human tissue sent by a health care provider to the laboratory for pathologic evaluation. The content of this report is essential for diagnosis and may provide important critical findings. This information may be unfamiliar to patients to review without a medical professional present. It is advised that the patient review this report in the presence of a health care provider who can answer questions and explain the details. Patient Name: AVRIL LALA Address: [address] [place] [address] Gender: F : 2000 (Age: 22) Service: Location: Hospital #: [id number] Patient Type: SPECIMEN Taken: 05/09/2023 Received: 05/09/2023 Accessioned:: 05/10/2023 Reported: 05/11/2023 Physician(s): REGINE Montiel. REGINE Montiel. Diagnosis: SOURCE OF SPECIMEN IMAGED THINPREP PAP TEST - LUNG PULLER CYTOLOGIC MATERIAL: STATEMENT OF ADEQUACY - Satisfactory for evaluation; endocervical/transformation zone component present GENERAL CATEGORIZATION: - Negative for intraepithelial lesion or malignancy ARELI Alvarado(ASCP) Report Electronically Reviewed and Signed Out By ARELI Alvarado(ASCP) 05/11/2023 10:18:38Specimen(s) Received: A: IMAGED THINPREP PAP TEST - LUNG PULLER CYTOLOGIC MATERIAL Clinical History: Contraceptive History: IUD The Pap test is a screening test used to aid in the detection of cervical cancer and its precursors. It should not be the sole means by which malignant and premalignant lesions are diagnosed. Both false negative and false positive results may occur. It also has poor sensitivity for the detection of endometrial lesions and should not be used to evaluate suspected endometrial abnormalities. For these reasons it is most important to obtain Pap tests at regular intervals. The performance characteristics of some immunohistochemical stains, fluorescence in-situ hybridization tests and immunophenotyping by flow cytometry cited in this report (if any) were determined by the Surgical Pathology Department at [facility] as part of an ongoing quality control lab technician program and in compliance with federally mandated regulations drawn from the Clinical Laboratory Improvement Act of 1988 (CLIA '88). Some of these tests rely on the use of analyte specific reagents and are subject to specific labeling requirements by the [place] Food and Drug Administration. Such diagnostic tests may only be performed in a facility that is certified by the Department of Health and Human Services as a high complexity laboratory under CLIA '88. The FDA has determined that such clearance or approval is not necessary. This test is used for clinical purposes. It should not be regarded as investigational or for research. Nevertheless, federal rules concerning the medical use of analyte specific reagents require that the following disclaimer be attached to the report: This test was developed and its performance characteristics determined by the Surgical Pathology Department [facility]. It has not been cleared or approved by the U. S. Food and Drug Administration. Mikayla Munoz NP LAB CYTOLOGY ORDER INNA Final Result PATHOLOGY [facility] [place] [address] * Hepatitis C antibody (10/16/2019 1:36 PM CDT) Hep C Ab NON-REACTI VE NON-REACT SHONNA [facility] SIGNAL TO CUT-OFF 0.02 <1.00 [facility] Comment: HCV antibody was non-reactive. There is no laboratory evidence of HCV infection. In most cases, no further action is required. However, if recent HCV exposure is suspected, a test for HCV RNA (test code 96902) is suggested. For additional information please refer to http://education.Desigual.iCracked/faq/DCV01s4 (This link is being provided for informational/ educational purposes only.) Blood specimen (specimen) 10/16/2019 1:36 PM CDT 10/16/2019 1:37 PM CDT Narrative [facility] - 10/17/2019 11:10 AM CDT PT HAD INS CARD ON PHONE FASTING:NO FASTING: NO Evelin Chaudhari MD LAB MICROBIOLOGY - GENERAL ORDER INNA Final Result [facility] [address] [place] [address] from Last 3 Months or Most Recently Relevant to Health Maintenance Insurance [facility] [employer] Care Teams Government Affairs Fellow Relationship Specialty Start Date End Date Donta Morocho MD [address] [place], [place] [id number] PCP - General Family Medicine 06/06/18 Jameson Barnett MD [address] [place] [address] Consulting Physician Orthopedic Surgery 03/25/23 Leandro Holland MD [address] [place] [address] Consulting Physician Rheumatology 09/08/23
--- OUTSIDE RECORDS SUMMARY | 2024-08-07 16:00 | XMS_ITS | Clinical Summary ---
Author Organization [facility] Address [address] [place] [address] Care Team Providers Care Tuck Pointer Helper Name Role Phone Unavailable Primary Care Provider Unavailabl e Source Comments [facility],non-owned Affiliates and Associated Physician Practices is amultiple site organization consisting of ambulatory clinics and hospital sitesin [place], [place], [place] and [place]. This disclosure is being madepursuant to the Care Everywhere program and may not contain all information available regarding this patient. Last updated 17.[facility] Allergies No known active allergies Medications * Be aware that medications may not be up to date on this document. Alwaysverify current medications with the patient. No known medications Active Problems No known active problems Immunizations Immunization Administration Dates Next Due INFLUENZA VACCINE, QUADR. (A FLURIA, FLUZONE QUADRIVALENT; 6MO+) (IIV4) 12/22/2017 Family History Medical History Relation Name Comments CAD (Coronary Artery Disease) Father bypass 58 years of age Diabetes - Type 2 Father Cancer - Other Sister lymphoma ADHD Neg Hx Allergies Neg Hx Aneurysm Neg Hx Asthma Neg Hx Autoimmune Disease Neg Hx Bipolar Disorder Neg Hx CVA<55(male) Neg Hx CVA<65(female) Neg Hx Cancer - Breast Neg Hx Cancer - Colon Neg Hx Cancer - Ovarian Neg Hx Cancer - Pancreatic Neg Hx Cancer - Prostate Neg Hx Childhood Hearing Disorder Neg Hx Clotting Disorder Neg Hx Depression Neg Hx Diabetes Neg Hx Eczema Neg Hx Genetic Neg Hx Heart defect Neg Hx Hypercholesterolemia Neg Hx Hypertension Neg Hx RI<55(male) Neg Hx RI<65(female) Neg Hx Mental Health Neg Hx Migraine Neg Hx Osteoporosis Neg Hx Seizures Neg Hx Sudd. <30 Neg Hx Thyroid Disease Neg Hx Ulcerative Colitis Neg Hx Relation Name Status Comments Father Sister Social History Tobacco Use Types Packs/Day Years Used Date Smoking Tobacco: Never Smokeless Tobacco: Never Comments No Sex and Gender Information Value Date Recorded Sex Assigned at Not on file Legal Sex Female 11:47 AM CDT Gender Identity Not on file Sexual Orientation Not on file Last Filed Vital Signs Vital Sign Reading Time Taken Comments Blood Pressure 104/66 11/01/2016 2:06 PM CDT Pulse 76 11/01/2016 2:06 PM CDT Temperature 37 C (98.6 F) 11/01/2016 2:06 PM CDT Respiratory Rate 16 11/01/2016 2:06 PM CDT Oxygen Saturation 99% 11/01/2016 2:06 PM CDT Inhaled Oxygen Concentration - - Weight 63.5 kg (140 lb) 11/01/2016 2:06 PM CDT Height 170.2 cm (5' 7) 11/01/2016 2:06 PM CDT Body Mass Index 21.93 11/01/2016 2:06 PM CDT Plan of Treatment Health Maintenance Due Date Last Done Comments HIV SCREENING 10/11/2014 HPV VACCINE (1 - 3-dose series) 10/11/2014 CHLAMYDIA/GONORRHEA SCREENING 2015 HEPATITIS C SCREENING 10/07/2017 DTAP/TDAP/TD VACCINES (1 - Tdap) 10/11/2018 HEPATITIS B VACCINE (1 of 3 - 19+ 3-dose series) 10/11/2018 COVID-19 VACCINE (1 - 2023-2 5 season) 2023 DEPRESSION SCREENING 02/22/2024 INFLUENZA VACCINE (Season Ended) 2024 12/23/19 18 ZOSTER VACCINE (1 of 2) 10/11/2049 HIB VACCINE Aged Out No longer eligi ble based on patient's age to complete this topic MENINGOCOCCAL (Group B) VACC INE SHARED DECISION-MAKING Aged Out No longer eligibl e based on patient's age to complete this topic MENINGOCOCCAL GROUPS A/C/Y/W VACCINE Aged Out No longer eligible b ased on patient's age to complete this topic PNEUMOCOCCAL VACCINE Aged Out No long er eligible based on patient's age to complete this topic Insurance [facility]
--- OUTSIDE RECORDS SUMMARY | 2024-08-07 16:00 | XMS_ITS | Clinical Summary ---
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 Encounters Date Type Department Care Team Description 08/06/2024 3:00 PM CDT - 08/06/2024 11:59 PM CDT Hospital Encounter [facility] - Breast Imaging [address] [place] [id number] Mass of left breast, unspecified quadrant Discharge Disposition: Discharge to home or self care 08/06/2024 3:00 PM CDT Office Visit [facility] Surgery [address] [place] [address] [address] [place] [phone] Diane Goldberg, NANCIE Mass of lower outer quadrant of left breast (Primary Dx); Breast pain 07/31/2024 Orders Only [facility] Surgery [address] [place] [address] [address] [place] [phone] Diane Goldberg, NANCIE Mass of left breast, unspecified quadrant (Primary Dx) 07/30/2024 Telephone [facility] Obstetrics and Gynecology [address] [place] [phone] Carlee Estrella Scheduling Appointments (//) 07/30/2024 Orders Only [facility] Surgery [address] [place] [phone] Diane Goldberg NP 07/26/2024 Telephone [facility] Obstetrics and Gynecology [address] [place] [address] Carlee Estrella Scheduling Appointments (/) 07/18/2024 Telephone [facility] Obstetrics and Gynecology [address] [place] [address] Carlee Estrella Scheduling Appointments (//) 07/11/2024 Telephone [facility] Obstetrics and Gynecology [facility] [place] [address] Carlee Estrella Scheduling Appointments 06/25/2024 Results Follow-[facility] [address] [phone] Hugo Castellanos MD TSH 06/19/2024 3:15 PM CDT Office Visit [facility] [address] [phone] Hugo Castellanos MD Subclinical hypothyroidism (Primary Dx) 05/31/2024 2:54 PM CDT - 05/31/2024 11:59 PM CDT Hospital Encounter [facility] [address] [place] [address] Routine screening for STI (sexually transmitted infection) Discharge Disposition: Discharge to home or self care 05/31/2024 1:45 PM CDT Office Visit [facility] Obstetrics and Gynecology [facility] 7th Floor [address] [place] [address] Joaquin Manzo MD Well woman exam (Primary Dx); Routine screening for STI (sexually transmitted infection) 05/28/2024 Telephone [facility] Obstetrics and Gynecology [address] [place] [address] 7th [address] [place] [address] Susana Landa 05/18/2024 Orders Only [facility] Dermatology [address] [place] [address] Health [address] [place] [address] Favian Mejia IV, MD PhD Acne vulgaris from Last 3 Months Immunizations Immunization Administration Dates Next Due Flucelvax Influenza Quad 02/24/2019 Influenza, Quadrivalent, Split, Intramuscular Influenza, Quadrivalent, Spl it, Preservative Free, Intramuscular 12/03/2019 Influenza, Unspecified 01/30/2023 Meningococcal MCV4P (Menactra) 11/18/2016 Tdap 10/29/2010 Varicella 10/29/2013 Surgical History Surgery Date Site/Laterality Comments TONSILLECTOMY 02/21/2011 - 02/21/2012 Tonsillectomy IN TONSILLECTOMY PRIMARY/SECONDARY <AGE 12 Tonsillectomy - (Added by BK Conv) TONSILLECTOMY 02/21/2010 - 02/20/2011 TONSILLECTOMY 02/21/2010 - 02/20/2011 Medical History Medical History Date Comments Hypothyroidism 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 Family History Medical History Relation Name Comments Diabetes type II Father Family hist ory of type 2 diabetes mellitus - (Added by BK Conv) Heart disease Father Family history of cardiac disorder - (Added by BK Conv) Rheum arthritis Maternal Grandfather Spondyloarthropathy Mother Diabetes Other 1 Family history of Diabetes mellitus; Heart disease Other 2 Family history of Heart disease; Relation Name Status Comments Father Alive Maternal Grandfather Mother Alive Other 1 Other 2 Social History Tobacco Use Types Packs/Day Years [...] on file Legal Sex Female 1:19 AM EXHIBIT PREPARATOR Gender Identity Not on file Sexual Orientation Not on file Obstetrics History Para Term AB IAB SAB Ectopic Multiple Livin g Live Births 0 0 0 0 0 0 0 0 0 0 0 Last Filed Vital Signs Vital Sign Reading [...] 08/06/2024 3:07 PM CDT Plan of Treatment Health Maintenance Due Date Last Done Comments Varicella Vaccines (2 of 2 - 13+ 2-dose series) 11/26/2013 10/29/2013 HPV Vaccines (1 - 3-dose series) 10/11/2014 Hepatitis B Screening 10/11/2017 DTaP/Tdap/Td Vaccine (2 - Td or Tdap) 10/29/2020 10/29/2010 Cervical Cancer Screening 05/08/2024 05/09/2023, Depression Screening 08/17/2024 08/18/2023 Influenza Vaccine (Season Ended) 2024 01/30/2023, 12/03/2019, 02/24/2019, Additional history exists Chlamydia and Gonorrhea (GC/CT) Screening 05/31/2025 05/31/2024, 07/31/2020, 09/05/2019 Regular Well Visit/Exam 18-64 05/31/2025 05/31/2024, 05/09/2023, 11/04/2020 Hepatitis C Screening Completed 10/16/2019 Pneumococcal vaccine <65 Aged Out No longer eligible based on patient's age to complete this topic Procedures Procedure Name Priority Date/Time Associated Diagnosis [...] LEFT breast was performed by a trained dairy nutrition specialist and by Dr. Arana. ULTRASOUND FINDINGS: Targeted [...] LEFT breast was performed by a trained dairy nutrition specialist and by Dr. Arana. ULTRASOUND FINDINGS: Targeted [...] (08/06/2024 1:33 PM CDT) TSH 7.79(H) mIU/L [facility] Comment: Reference Range > or = 20 Years 0.40-4.50 Ranges First trimester 0.26-2.66 Second trimester 0.55-2.73 Third trimester 0.43-2.91 Blood 08/06/2024 1:33 PM CDT 08/06/2024 1:33 PM CDT Narrative [facility] - 08/07/2024 1:37 AM CDT FASTING:NO FASTING: NO us Hugo Castellanos MD LAB BLOOD ORDERABLES Final Resul t Performing Organization Address [facility] de Phone Number [facility] [address] [place] [address] * T4, free (08/06/2024 1:33 PM CDT) Free T4 1.1 0.8 - 1.8 ng/dL [facility] Blood 08/06/2024 1:33 PM CDT 08/06/2024 1:33 PM CDT Narrative [facility] - 08/07/2024 1:37 AM CDT FASTING:NO FASTING: NO us Hugo Castellanos MD LAB BLOOD ORDERABLES Final Resul t Performing Organization Address [facility] Phone Number [facility] [address] [place] [phone] * (ABNORMAL) Thyroid peroxidase antibody (TPO) (06/20/2024 2:43 PM CDT) Thyroperoxidase ab 886(H) <9 IU/mL [facility] Blood 06/20/2024 2:43 PM CDT 06/20/2024 2:44 PM CDT us Hugo Castellanos MD LAB BLOOD ORDERABLES Final Resul t Performing Organization Address [facility] de Phone Number [facility] [address] [place] [address] * T3, free (06/20/2024 2:43 PM CDT) Free T3 3.3 2.3 - 4.2 pg/mL [facility] Blood 06/20/2024 2:43 PM CDT 06/20/2024 2:44 PM CDT us Hugo Castellanos MD LAB BLOOD ORDERABLES Final Resul t [facility] [address] [phone] * (ABNORMAL) TSH (06/20/2024 2:43 PM CDT) TSH 8.63(H) mIU/L [facility] Comment: Reference Range > or = 20 Years 0.40-4.50 Ranges First trimester 0.26-2.66 Second trimester 0.55-2.73 Third trimester 0.43-2.91 Blood 06/20/2024 2:43 PM CDT 06/20/2024 2:44 PM CDT us Hugo Castellanos MD LAB BLOOD ORDERABLES Final Resul t Performing Organization Address [facility] Co de Phone Number [facility] [address] [place] [address] * T4, free (06/20/2024 2:43 PM CDT) Pathologist [facility] Free T4 1.2 0.8 - 1.8 ng/dL [facility] Blood 06/20/2024 2:43 PM CDT 06/20/2024 2:44 PM CDT us Hugo Castellanos MD LAB BLOOD ORDERABLES Final Resul t Performing Organization Address [facility] Co de Phone Number [facility] [address] [place] [address] * N. gonorrhoeae/C. trachomatis Amplification Endocervical (05/31/2024 5:00 PM CDT) Pathologist [facility] C. trachomatis Not Detected [facility] N. gonorrhoeae Not Detected [facility] Comment: Interpretive Data This assay detects Chlamydia trachomatis and Neisseria gonorrhoeae by nucleic acid amplification testing (NAAT). This assay has been cleared by the [place] Food and Drug administration. The performance characteristics of this test have been verified by the [facility] Molecular Infectious Disease laboratory. The performance characteristics of this test have not been evaluated in individuals less than 14 years of age. Current Interpretive Data was last revised on 2022. Endocervical (None) 06/01/19 5:00 PM CDT 05/31/2024 5:26 PM CDT Joaquin Manzo MD LAB MICROBIOLOGY - GENERAL ORDERABLES Final Result Performing Organization Address [facility] de Phone Number TONIA [facility] Department [place] [address] [facility] * Trichomonas vaginalis PCR Endocervical (05/31/2024 5:00 PM CDT) Trichomonas DNA Not Detected [facility] Comment: Interpretive Data This assay detects Trichomonas vaginalis by nucleic acid amplification testing (NAAT). This assay has been cleared by the [place] Food and Drug administration. The performance characteristics of this test have been verified by the [facility] Molecular Infectious Disease laboratory. The performance of this test has not been evaluated in individuals less than 18 years of age. Current Interpretive Data was last revised on 2022. Endocervical 05/31/2024 5:00 PM CDT 05/31/2024 5:26 PM CDT Joaquin Manzo MD LAB MICROBIOLOGY - GENERAL ORDERABLES Final Result Performing Organization Address [facility] de Phone Number TONIA [facility] Department [place] [address] [facility] * Pap Only (Cytology Component) (05/09/2023 10:18 AM CDT) Thin prep (Pap test) 05/09/2023 10:18 AM CDT 05/09/2023 10:18 AM CDT Narrative PATHOLOGY CH - 05/11/2023 10:18 AM CDT [facility] Department of Pathology [address] [place] [id number] Final Report Note to Patients: This report [...] the details. Patient Name: AVRIL LALA Address: [address] [place] [address] Gender: F : 2000 (Age: 22) Service: Location: N : [id number] [facility] #: [id number] Patient Type: SPECIMEN Taken: 05/09/2023 Received: 05/09/2023 Accessioned:: 05/10/2023 Reported: 05/11/2023 Physician(s): REGINE Montiel. REGINE Montiel. 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 CYTOLOGIC MATERIAL: STATEMENT OF ADEQUACY - Satisfactory for evaluation; endocervical/transformation zone component present GENERAL CATEGORIZATION: - Negative for intraepithelial lesion or malignancy ARELI Alvarado(ASCP) Report Electronically Reviewed and Signed Out By ARELI Alvarado(ASCP) 05/11/2023 10:18:38Specimen(s) Received: A: IMAGED THINPREP PAP TEST - COLORING MACHINE OPERATOR CYTOLOGIC MATERIAL Clinical History: Contraceptive History: IUD [...] determined by the Surgical Pathology Department at [facility] as part of an ongoing assistant quality manager program and in compliance with federally mandated [...] characteristics determined by the Surgical Pathology Department [facility]. It has not been cleared or approved by the [place]. S. Food and Drug Administration. Mikayla Munoz NP LAB CYTOLOGY ORDER INNA Final Result PATHOLOGY [address] [place] [address] * Hepatitis C antibody (10/16/2019 1:36 PM CDT) Hep C Ab NON-REACTI VE NON-REACT SHONNA [facility] SIGNAL TO CUT-OFF 0.02 <1.00 [facility] Comment: HCV antibody was non-reactive. There is no laboratory evidence of HCV infection. In most cases, no further action is required. However, if recent HCV exposure is suspected, a test for HCV RNA (test code 29928) is suggested. For additional information please refer to http://education.Shake.Slide/faq/AQB71w2 (This link is being provided for informational/ educational purposes only.) Blood specimen (specimen) 10/16/2019 1:36 PM CDT 10/16/2019 1:37 PM CDT Narrative [facility] - 10/17/2019 11:10 AM CDT PT HAD INS CARD ON PHONE FASTING:NO FASTING: NO Evelin Chaudhari MD LAB MICROBIOLOGY - GENERAL ORDER INNA Final Result [facility] [address] [phone] from Last 3 Months or Most Recently Relevant to Health Maintenance Insurance [facility] CHOICE PLUS [facility] CHOICE PLUS [facility] CHOICE PLUS Care Teams Water Treatment Plant Operator Relationship Specialty Start Date End Date Donta Morocho MD [address] [facility] [address] [place] [address] PCP - General Family Medicine 06/06/18 Jameson Barnett MD [address] [facility] [address] [place] [address] Consulting Physician Orthopedic Surgery 03/25/23 Leandro Holland MD [address] [place] [address] Consulting Physician Rheumatology 09/08/23
[2024-08-07 16:40] LABS: MRSA (PCR) NOT DETECTED (NOT DETECTE)
== END 2024-08-07 15:04 | disposition home or self-care (01) ==
PROVIDERS: PCP Family Medicine; Visit Provider Otolaryngology
DX: Z22.322 Carrier or suspected carrier of Methicillin resistant Staphylococcus aureus (principal)
CPT/HCPCS: 87641

== ENCOUNTER 2024-08-27 16:40 | Emergency (ER) | payer OTHER, SELFPAY ==
[2024-08-27 16:45] VITALS: BP 122/88; PULSE 94; RESP 16; TEMP 37.2; O2SAT 100
--- NOTE | 2024-08-27 17:22 | ED_ITS ---
HPI - Skin/Abscess/Foreign Bdy General Chief complaint: Skin/Abscess/Foreign Body Stated complaint: Skin Infection Time Seen by Provider: 08/27/24 17:13 Source: patient and RN notes reviewed Mode of arrival: ambulatory Limitations: no limitations History of Present Illness HPI narrative: Patient presents today reporting an abscess to her left buttock. Reports that started as a pimple yesterday and grew into a dime-sized abscess that was noted this morning. Patient does have history of MRSA in 2022. She has been applying mupirocin to the area. Patient just had a rhinoplasty almost 2 weeks ago but is not currently on any antibiotics. Related Data Home Medications ?Medication ?Instructions ?Recorded ?Confirmed ?Last Taken ?Type spironolactone 50 mg tablet 50 mg PO BID 04/13/19 07/09/24 Unknown History levothyroxine 25 mcg tablet mcg 08/27/24 Unknown History mupirocin 2 % topical ointment topical 08/27/24 Unknown History Allergies Allergy/AdvReac Type Severity Reaction Status Date / Time fluconazole Allergy Other Verified 07/09/24 11:39 [facility] Past Medical History Medical History Positive antinuclear antibody Patient denies medical problems Surgical History Surgical History No pertinent past surgical history Family History Family History Father Hypertension Family history of elevated blood lipids Family history of diabetes mellitus in first degree relative Family history of coronary artery disease Social History Social History Social History: Single Smoking status: Never smoker Second hand tobacco smoke exposure: No Alcohol intake: never Substance use: never Substance use type: does not use Living arrangements: alone Occupation/Education: student Additional occupation/education comments: 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 Gender identity (if verbalized by the patient): Female Comments At time of signature, I have reviewed and agree with nursing past medical, surgical, social and family history unless otherwise noted. Please see nursing chart for further information. There is no relevant family history pertinent to the presenting complaint Exam Narrative: GENERAL: Well-appearing, well-nourished, and in no acute distress. HEAD: Normocephalic, atraumatic. EYES: EOMI. No redness or drainage. Conjunctivae normal. ENT: Mucous membranes pink and moist. NECK: Normal AROM. CHEST: No respiratory distress. EXTREMITIES: Normal range of motion. No edema. SKIN: Warm, dry, no rash. Capillary refill normal. Normal skin turgor. Dime- sized abscess with very thin skin overlying the top filled with white purulent discharge. NEURO: No focal deficits. Alert and oriented x3. Gait steady. PSYCH: Normal affect. No signs of depression or anxiety. Course Course Level of Care: Express Care Visit Vital Signs Vital signs: Vital Signs Temperature 98.9 F 08/27/24 16:45 Pulse Rate 94 08/27/24 16:45 Respiratory Rate 16 08/27/24 16:45 Blood Pressure 122/88 08/27/24 16:45 Pulse Oximetry 100 08/27/24 16:45 Oxygen Delivery Room Air 08/27/24 16:45 Temperature 98.9 F 08/27/24 16:45 Pulse Rate 94 08/27/24 16:45 Respiratory Rate 16 08/27/24 16:45 Blood Pressure 122/88 08/27/24 16:45 Pulse Oximetry 100 08/27/24 16:45 Oxygen Delivery Room Air 08/27/24 16:45 Reviewed Procedures Abscess I/D left buttock: Date of Incision: 08/27/24 Time of Incision: 17:46 Side (if applicable): left Local Anesthetic: none Technique: incised with #11 blade Amount of fluid expressed (mL): 0.5 Irrigation: Yes Packing used?: none I&D Results: Pus Abcess I&D Additional Comments: Patient tolerated procedure well. Cleansed with iodine prior to procedure. Dressed with Band-Aid. MDM - Skin/Abscess/Foreign Bdy MDM Narrative Medical decision making narrative: Pleasant 23-year-old female patient with a history of MRSA presents today with an abscess to the left buttock that developed from a a tiny lesion to a dime- sized abscess since yesterday. Area was lanced and dressed with culture obtained. Patient was placed on a course of doxycycline. Vital signs stable. No systemic symptoms. Stable for outpatient treatment. Anticipatory guidance given. Differential Diagnosis Differential diagnosis: Likely abscess of skin or subcutaneous tissue and cellulitis Critical Care Time Critical Care Time Critical Care Time: No Discharge Plan Discharge Clinical Impression: Abscess of buttock, left Patient Disposition: Home Condition: Stable Instructions: Antibiotic Form, Abscess (ED) Additional Instructions: Your abscess has been lanced and drained. Wash with soap and water daily and keep covered until scabbed or healed. Do not submerge in standing water such as pools, hot tubs, lakes until scabbed or healed. Take the doxycycline as directed. You will be notified of your wound culture results. Follow-up with your PCP with any additional concerns. Your blood pressure was elevated above 120/80 today at Urgent Care. This puts you above the threshold for follow up. Please schedule a followup visit with your personal physician as soon as possible, for further evaluation and treatment. Even blood pressure exceeding 120/80 may indicate pre-hypertension. Patient Language: South Korean Prescriptions: New doxycycline hyclate 100 mg tablet 100 mg PO BID 7 Days Qty: 14 0RF No Action levothyroxine 25 mcg tablet mupirocin 2 % ointment TOPICAL spironolactone 50 mg tablet 50 mg PO BID Follow-up/Referrals: Donta Morocho MD [Primary Care Provider] - Time of Disposition: 17:48
--- NOTE | 2024-08-27 18:35 | PC.NURSE ---
1710- see BUILD MANAGER notes for I & D of buttocks abscess, culture of drainage obtained, and then BUILD MANAGER placed a bandaid over the incision. pt tolerated well - mother at bedside.
== END 2024-08-27 17:49 | disposition home or self-care (01) ==
PROVIDERS: Emergency Provider Nurse Practitioner; PCP Family Medicine
DX: L02.31 Cutaneous abscess of buttock (principal); B95.62 Methicillin resistant Staphylococcus aureus infection as the cause of diseases classified elsewhere
CPT/HCPCS: 10060; 87070; 87075; 87181; 87205; 99213; G0463

== ENCOUNTER 2024-09-20 15:28 | Emergency (ER) | payer OTHER, SELFPAY ==
--- NOTE | 2024-09-20 15:31 | ED_ITS ---
HPI - Skin/Abscess/Foreign Bdy General Chief complaint: Skin/Abscess/Foreign Body Stated complaint: ABSCESS Time Seen by Provider: 09/20/24 15:29 Source: patient Mode of arrival: ambulatory Limitations: no limitations History of Present Illness HPI narrative: Patient is a 23-year-old female presenting for pimple like wound on buttocks. Patient states she has been wearing thongs recently and has been rubbing on that area. Denies area being painful to touch, warm or overly red. Recently had MRSA infection on same buttocks Related Data Home Medications ?Medication ?Instructions ?Recorded ?Confirmed ?Last Taken ?Type spironolactone 50 mg tablet 50 mg PO BID 04/13/19 07/09/24 Unknown History levothyroxine 25 mcg tablet mcg 08/27/24 Unknown History mupirocin 2 % topical ointment topical 08/27/24 Unknown History Allergies Allergy/AdvReac Type Severity Reaction Status Date / Time fluconazole Allergy Other Verified 07/09/24 11:39 Review of Systems 2 Review of Systems: All systems reviewed & are unremarkable except as noted in HPI and below Constitutional: Constitutional: Denies body ache(s), Denies chills, Denies fatigue, Denies fever(s), Denies headache(s), Denies malaise and Denies weakness Eyes: Eyes: Denies blurry vision, Denies irritation and Denies loss of vision ENT: Denies otalgia, Denies headache(s), Denies nasal discharge, Denies sinus pain and Denies sore throat Cardiovascular: Cardiovascular: Denies chest pain, Denies irregular heart rhythm and Denies dyspnea Respiratory: Respiratory: Denies dyspnea Gastrointestinal: Gastrointestinal: Denies abdominal pain, Denies melena, Denies hematochezia, Denies diarrhea, Denies nausea and Denies vomiting Musculoskeletal: Musculoskeletal: Denies back pain, Denies myalgias and Denies arthralgias Integumentary/Breasts: Skin/Breast: Denies pruritus, Denies rash and Reports wounds Neurologic: Denies headache(s), Denies loss of vision and Denies weakness Psychiatric: Psychiatric: Reports no additional psychiatric complaints Endocrine: Endocrine: Denies fatigue PMFSH Past Medical History Medical History Positive antinuclear antibody Patient denies medical problems Surgical History Surgical History No pertinent past surgical history Family History Family History Father Hypertension Family history of elevated blood lipids Family history of diabetes mellitus in first degree relative Family history of coronary artery disease Social History Social History Social History: Single Smoking status: Never smoker Second hand tobacco smoke exposure: No Alcohol intake: never Substance use: never Substance use type: does not use Living arrangements: alone Occupation/Education: student Additional occupation/education comments: 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 Gender identity (if verbalized by the patient): Female Comments At time of signature, agree with nursing past medical, surgical, social and family history. There is no relevant family history pertinent to the presenting complaint. Exam 2 Const: General: cooperative, healthy appearing, comfortable, no acute distress and well nourished Nutritional Appearance: well nourished O rientation/consciousness: patient oriented x3 Limitations: no limitations HENMT: Head: normal to inspection, normocephalic and atraumatic Ears: h earing grossly normal bilaterally and external ears normal Face/Nose/Sinus: N ormal external nose present, normal facial exam and face symmetric Face and sinus: normal facial exam and face symmetric Mouth: Yes lip normal Eyes: General: appearance normal, both eyes and all related structures A lignment and Position: alignment normal and position normal Periorbital: p eriorbital findings normal Eyelids: eyelids normal Pupils: Equal, round and reactive pupils present EOM: EOMs intact bilaterally Neck: Neck: normal visual inspection, full ROM and supple Chest: Chest palpation & inspection: normal inspection of the chest Resp: Effort & Inspection: normal respiratory effort and able to speak in complete sentences Auscultation: clear to auscultation bilaterally Cardio: Rate: regular rate Rhythm: regular rhythm Heart sounds: S1 normal heart sound present and S2 normal heart sound present GI: Inspection: normal to inspection Skin: General skin exam: normal color and no rashes or lesions noted Full body images: 1. Smaller than 0.5 cm postural surrounding hair follicle. No surrounding erythema, warmth or drainage Neuro: General: patient oriented x3 and moves all extremities Cranial nerves: Yes Equal, round and reactive pupils present Speech: normal speech Gait exam (Neuro): Normal gait present Extrem: General: normal to inspection, full ROM and no edema Psych: Appearance: grossly normal and well kempt Mental Status: mental status grossly normal Speech and movement: Normal speech and movement present Affect: normal affect Attitude: cooperative Thought process: Normal thought process present Course Course Emergency Course: Patient is aware of diagnosis, understands and agrees to treatment plan. Anticipatory guidance given. Patient agrees to follow-up as directed and is aware of reasons to seek care at the emergency department. Portions of this record may have been created with voice recognition software Level of Care: Express Care Visit Vital Signs Vital signs: Vital Signs Temperature 36.7 C 09/20/24 15:40 Pulse Rate 91 09/20/24 15:40 Respiratory Rate 16 09/20/24 15:40 Blood Pressure 114/94 H 09/20/24 15:40 Pulse Oximetry 100 09/20/24 15:40 Oxygen Delivery Room Air 09/20/24 15:40 Temperature 36.7 C 09/20/24 15:40 Pulse Rate 91 09/20/24 15:40 Respiratory Rate 16 09/20/24 15:40 Blood Pressure 114/94 H 09/20/24 15:40 Pulse Oximetry 100 09/20/24 15:40 Oxygen Delivery Room Air 09/20/24 15:40 Reviewed MDM - Skin/Abscess/Foreign Bdy MDM Narrative Medical decision making narrative: Culture sent of minimal drainage after manual pressure applied. Pt well hydrated appearing, in no respiratory distress, hemodynamically stable. Recommend supportive care. The patient is stable at time of discharge the clinical impression was discussed and the patient was given the opportunity to ask questions, which were addressed as completely as possible given the information available at present. Anticipatory guidance and return to care precautions were discussed and the importance of primary care follow-up was stressed and encouraged. The patient voiced understanding of the plan, indications to return, and the need for follow-up. Exam findings show no acute concerns or changes Patient is appropriate for outpatient treatment and follow-up. Differential Diagnosis Differential diagnosis: Likely abscess of skin or subcutaneous tissue, cellulitis, impetigo and other (Folliculitis) Medical Records Attestation: I reviewed the patient's medical records. Discharge Plan Discharge Clinical Impression: Folliculitis Patient Disposition: Home Condition: Stable Instructions: Folliculitis (ED) Additional Instructions: Wound dressed with topical Bacitracin and sterile gauze. Apply home Bactroban after warm soaks BID. Keep wound covered. Go to the emergency department if you have worsening redness, swelling or pus. Patient Language: Croatian Prescriptions: No Action levothyroxine 25 mcg tablet mupirocin 2 % ointment TOPICAL doxycycline hyclate 100 mg tablet 100 mg PO BID 7 Days Qty: 14 0RF clindamycin HCl [Cleocin HCl] 150 mg capsule 450 mg PO TID 5 Days Qty: 45 0RF spironolactone 50 mg tablet 50 mg PO BID Follow-up/Referrals: Donta Morocho MD [Primary Care Provider] - 3 Days Time of Disposition: 16:22
[2024-09-20 15:40] VITALS: BP 114/94; PULSE 91; RESP 16; TEMP 36.7; O2SAT 100
--- NOTE | 2024-09-28 09:40 | PC.NURSE ---
final wound culture reviewed. provider, armando, contacted pt. pt symptoms have resolved with topical rx. no change in plan of care. no new rx prescribed
== END 2024-09-20 16:28 | disposition home or self-care (01) ==
PROVIDERS: Emergency Provider Nurse Practitioner Family; PCP Family Medicine
DX: L73.9 Follicular disorder, unspecified (principal)
CPT/HCPCS: 99213; G0463